=== PATIENT | female | born 1940 | race Caucasian/White ===

== ENCOUNTER 2022-12-19 11:36 | Emergency (ER) | payer MEDICARE ==
[2022-12-19 11:44] VITALS: RESP 20
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
--- NOTE | 2022-12-19 13:30 | CT ---
EXAMINATION TYPE: CT brain zully wo con DATE OF EXAM: 12/19/2022 COMPARISON: None HISTORY: 82-year-old female with pain after trauma, fall CT DLP: 1552.2 mGycm Automated exposure control for dose reduction was used. Technique: Examination of the head was done in axial plane without intravenous contrast. Coronal and sagittal reconstructions performed. CT of the cervical spine was obtained in axial plane without intravenous injection of contrast mater ial. Coronal and sagittal reformatted images were obtained from the axial views for evaluation of f ractures, spinal alignment and canal. FINDINGS: Head: There is no evidence of acute intracranial hemorrhage, acute ischemic changes, mass, mass-effect, or extra-axial fluid collection. There is no effacement of cerebral sulci or basal subarachnoid cister ns. Mild ventricular prominence likely secondary to central cerebral atrophy. Mild white matter hypod ensities. There is no midline shift. Eduardo-white matter distinction is preserved. Mild to moderate posterior superior scalp contusion. No underlying calvarial fracture. Rightward nasa l septal deviation. Trace mucosal thickening ethmoid air cells. Orbits and globes are intact. Mastoid air cells well pneumatized. Cervical spine: No craniocervical junction or necrotic, predental space widening, or prevertebral soft tissue swellin g. Degenerative changes at the C1 dens articulation. Degenerative bony ankylosis extending from C2 through C6 levels. Hypertrophic facet and uncovertebral joint arthropathy throughout. Some degenerative bony ankylosis i s present along the posterior elements as well. Verbal mild neuroforaminal narrowing throughout. Reversal of the normal cervical lordosis but with pr eserved alignment. No acute fracture seen of the cervical spine. Retropharyngeal course left ICA. Sagittal and coronal reformatted images confirm above findings. COMBINED IMPRESSION: 1. Right posterior scalp contusion. Mild central cerebral atrophy. Mild burden of chronic small vesse l ischemic disease. No acute intracranial abnormality seen. 2. 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 Reversal of the normal cervical lordosis. No acute fracture or malalignment seen.
[2022-12-19 14:07] VITALS: BP 129/83; PULSE 64; TEMP 98.6
== END 2022-12-19 14:04 | disposition home or self-care (01) ==
LOC: EC 11:36
DX: S00.03XA Contusion of scalp, initial encounter (principal); S06.0XAA Concussion with loss of consciousness status unknown, initial encounter; I10 Essential (primary) hypertension; E07.9 Disorder of thyroid, unspecified; F41.9 Anxiety disorder, unspecified; Z79.890 Hormone replacement therapy; Z79.899 Other long term (current) drug therapy; W18.30XA Fall on same level, unspecified, initial encounter
CPT/HCPCS: 70450; 72125; 93005; 99284

== ENCOUNTER → 2022-12-31 | Day surgery (SDC) | payer MEDICARE, OTHER ==
--- NOTE | 2023-01-09 08:47 | MM ---
Reason for Exam: Post Procedure Mammogram. Last mammogram was performed 16 year(s) and 11 month(s) ago. Patient History: Menarche at age 17. First Full-Term at age 25. Postmenopausal. Excisional Biopsy on the Right side. 03/13/2006, Cancelled Right Mammotome on the right side. Sister had breast cancer, age 40. Sister had breast cancer, age 50. Sister had breast cancer, age 50. Risk Values: Dorina 5 year model risk: 7.1%. NCI Lifetime model risk: 10.8%. Prior Study Comparison: 02/13/2006 Bilateral Screening Mammogram, [facility]. 02/26/2006 Right Diagnostic Mammogram, [facility]. 10/10/2006 Right Diagnostic Mammogram, [facility]. Tissue Density: Left: The breast tissue is heterogeneously dense. This may lower the sensitivity of mammography. Pathology Description: Location: 4 o'clock. Marker Left Behind. Needle Type: Mammotome Cores: 6 Skin Nicks: 1 Gauge: 13 Pathology Description: Location: 1 o'clock. Marker Left Behind. Needle Type: Mammotome Cores: 7 Skin Nicks: 1 Gauge: 13 The procedure of ultrasound guided core biopsy was explained to the patient. Benefits, alternatives, and risks were discussed. An informed consent was then obtained. A timeout was performed. The patient was placed in supine positioning for imaging and for the procedure. The overlying skin was prepped and draped in usual sterile fashion. Lidocaine was used as anesthetic into the skin and subcutaneous tissue up to area of concern in the left breast. A small skin marylou was made with surgical scalpel. There are 2 adjacent lesions. These were very dense and agree with entering with the needle for lidocaine. Under ultrasound guidance, a 12-gauge vacuum assisted biopsy device was used to obtain 7 core samples at the 1:00 position. 4 were taken at the larger site with 3 additional with the same device at the same time slightly more medial. A biopsy clip was left in between these 2 lesions. T3 coil marker was placed. A separate set up was performed. The area was anesthetized lidocaine. Under ultrasound guidance, a 12-gauge vacuum assisted biopsy device was used to obtain 6 core samples at the 4:00 position. Both far and near wall edges were sampled. A biopsy clip was left in lesion. Top core marker was placed. The patient tolerated the procedure well without any immediate complication. The patient was kept in the radiology department for short stay after the procedure and then discharged home in stable condition. Postprocedure mammogram: The patient was transferred to mammography for physician ordered post procedure mammogram for clip placement verification. The core markers are in expected regions mammogram. Impression: Successful ultrasound guided core biopsy of 2 areas of concern by ultrasound in the left breast breast, full pathology results to follow. Recommendations: 1. Recommendations are pending pathology results. Pathology Results: Result: Malignant, Invasive lobular carcinoma. A. LEFT BREAST, ONE O'CLOCK POSITION, ULTRASOUND GUIDED CORE BIOPSY: Invasive lobular carcinoma, Grade 2, with lobular carcinoma in situ (LCIS). See Surgical Pathology Cancer Case Summary and comment. B. 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 See Surgical Pathology Cancer Case Summary and comment. Overall Assessment: Malignant Assessment: MG diagnostic mammo LT wo CAD. - Left: Known biopsy proven malignancy, BI-RAD 6. Management: Surgical Consultation of the left breast. Electronically signed and approved by: Fernandez Khan D.O. Radiologis
== END ==
LOC: RADUSWWP 12:37
PROVIDERS: ATTEND Surgery
DX: C50.212 Malignant neoplasm of upper-inner quadrant of left female breast (principal); C50.412 Malignant neoplasm of upper-outer quadrant of left female breast; Z17.0 Estrogen receptor positive status [ER+]; Z78.0 Asymptomatic menopausal state; Z80.3 Family history of malignant neoplasm of breast
CPT/HCPCS: 88305; 88342; 88341; 77065; 19083; 19084; A4648

== ENCOUNTER → 2023-01-11 | Outpatient (CLI) | payer MEDICARE, OTHER ==
--- NOTE | 2023-01-11 10:22 | P.GSHP ---
History of Present Illness H&P Date: 01/11/23 Chief Complaint: Invasive carcinoma left breast 2 sites Maureen is an 82 -year-old white female seen in consultation with her daughter for Laureen Galan regarding biopsy-proven carcinoma of the left breast at 2 sites. The patient underwent on 12-04-22 and bilateral mammogram. This revealed a 2 cm irregular high-density mass in the left breast and a 1 cm irregular adjacent or contiguous mass in the inferior posterior breast. There was a poorly defined 1.5 cm mass in the middle third of the outer left breast in the 2 to 3:00 axis. No lesions of concern were recorded in the right breast. She then underwent bilateral breast ultrasounds. In the right breast there was a questionable mass at the 9:00 region on ultrasound which was indeterminant and in the left breast a 2.4 cm irregular solid mass at 4:00 was identified and a 1.2 cm irregular mass at 1:00 was identified. At least 2 suspicious lymph nodes in the left axilla were identified. She subsequently underwent ultrasound-guided core biopsy of the 1:00 to 4:00 site in the left breast. The 1:00 site revealed invasive lobular grade 2 carcinoma. The 4:00 site revealed invasive low-grade ductal carcinoma grade 1 with DCIS. Recommendation was for a ultrasound-guided right breast biopsy of the 9:00 lesi on versus a MRI. These were reviewed in detail with Dr. Peña. The patient can feel a lump in her left breast for about three weeks. She is not complaining of any pain in her breast. She did have a right breast lump removed in the remote past which was benign. She is not complaining of any trauma or infection in the breast. She had not had any mammograms prior to this evaluation for alise lopez 9 years. Caffeine: occasional nicotine: none chocolate: weekly BCP: none hormones: none Family History: 3 sisters: breast cancer; youngest in her 40's; (she had 7 sisters and 5 brothers) Hormonal History: menarche: 17 breast fed: yes, age at first : 25 menopause: 47 hormones: none Surgical History: polio 8 on her legs neck surgery right elbow ear extra toe cut off Medical History: hypothyroid gout HTN Social History: nicotine: none Call: Negative Drugs: Negative - Constitutional Constitutional: Denies chills, Denies fever - EENT Eyes: bilateral blurred vision Ears: bilateral: decreased hearing Ears, nose, mouth and throat: Denies headache, Denies sore throat - Breasts Breasts: bilateral: as per HPI - Cardiovascular Cardiovascular: Denies chest pain, Denies shortness of breath - Respiratory Respiratory: Denies cough, Denies 7 - Gastrointestinal Gastrointestinal: Denies abdominal pain, Denies diarrhea, Denies nausea, Denies vomiting - Genitourinary (Female) Genitourinary: Denies dysuria, Denies hematuria - Menstruation Menstruation: Reports postmenopausal - Musculoskeletal Musculoskeletal: Reports as per HPI - Integumentary Integumentary: Denies pruritus, Denies rash - Neurological Comment: uses a walker left leg fracture Neurological: Reports numbness - Psychiatric Psychiatric: Reports anxiety, Denies depression - Endocrine Endocrine: Reports as per HPI - Hematologic/Lymphatic Comment: none - Allergic/Immunologic Allergic/Immunologic: Reports seasonal allergies Past Medical History Past Medical History: Hypertension, Thyroid Disorder Additional Past Medical History / Comment(s): polio gout History of Any Multi-Drug Resistant Organisms: None Reported Past Surgical History: Back Surgery, Joint Replacement, Orthopedic Surgery Additional Past Surgical History / Comment(s): r arm neck surg Past Anesthesia/Blood Transfusion Reactions: No Reported Reaction Past Psychological History: Anxiety Past Alcohol Use History: None Reported Past Drug Use History: None Reported - Past Family History Father Family Medical History: No Reported History Medications and Allergies Home Medications Medication Instructions Recorded Confirmed Type Levothyroxine Sodium [Synthroid] 175 mcg PO DAILY 06/09/17 12/19/22 History Lisinopril-Hctz 20-25 mg 1 tab PO DAILY 06/09/17 12/19/22 History [Zestoretic 20-25] allopurinoL [Zyloprim] 100 mg PO DAILY 06/09/17 12/19/22 History atenoloL [Tenormin] 50 mg PO DAILY 06/09/17 12/19/22 History Allergies Allergy/AdvReac Type Severity Reaction Status Date / Time No Known Allergies Allergy Verified 12/19/22 13:57 Surgical - Exam - General no distress - Eyes normal ocular movement - Neck trachea midline - Respiratory normal respiratory effort, clear to auscultation - Cardiovascular Heart Sounds: normal: S1, S2 - Abdomen Abdomen: soft, non tender, no guarding, no rigid, no rebound - Integumentary normal turgor - Neurologic no disoriented, no combative - Musculoskeletal in a wheel chair - Psychiatric oriented to time, oriented to person, oriented to place, speech is normal, memory intact Breast Exam: BRA: 42DD Inspection: Bilateral grade 3 ptosis Palpation: Patient examined in the wheelchair Right breast: Examination reveals no dominant masses or nodules of concern, fibrocystic changes Right axilla: No adenopathy of concern Left breast: Examined in wheelchair, approximately 4-5 cm mass at the 4 o'clock position of the breast which extends superiorly it is not fixed, there does not appear to be skin involvement, no other dominant masses or nodules of concern Left axilla: No adenopathy of concern Results Mammogram and ultrasound reviewed in detail with Dr. Khan Pathology revealed Left breast 1:00: Grade 2 lobular invasive carcinoma, with LCIS Left breast 4:00: Grade 1 invasive ductal carcinoma Both of these are ER/AL positive, the 1:00 lesion is HER-2 negative, the 4:00 lesion HER-2 status is pending Assessment and Plan Assessment: Impression: Left breast biopsy proven invasive lobular carcinoma at 1 o'clock position; T1N?M0ER+Pr+Her2-G2; Lesion at 4:00 T2N?M0 ER+Pr+HER-2? G1 Status post polio resulting in difficulty with ambulation/status post fracture of right lower extremity Hypertension Hypothyroid Decreased hearing Plan: Presentation of case at tumor board Breast MRI Ultrasound-guided core biopsy left axillary node Patient and daughter will follow up after the above is done CC: Laureen Galan
[2023-01-11 10:54] VITALS: BP 135/80; PULSE 70; RESP 18; TEMP 98.9
== END ==
LOC: WWCWWP 09:40
PROVIDERS: ATTEND Surgery
DX: D05.02 Lobular carcinoma in situ of left breast (principal); Z17.0 Estrogen receptor positive status [ER+]; E03.9 Hypothyroidism, unspecified; I10 Essential (primary) hypertension; M10.9 Gout, unspecified; N63.25 Unspecified lump in the left breast, overlapping quadrants; Z79.890 Hormone replacement therapy; Z80.3 Family history of malignant neoplasm of breast; Z85.3 Personal history of malignant neoplasm of breast; Z79.899 Other long term (current) drug therapy; Z87.891 Personal history of nicotine dependence

== ENCOUNTER → 2023-01-30 | Day surgery (SDC) | payer MEDICARE, OTHER ==
--- NOTE | 2023-02-06 12:54 | MM ---
Reason for Exam: Post Procedure Mammogram. Last screening mammogram was performed 2 month(s) ago. Patient History: Menarche at age 17. First Full-Term at age 25. Postmenopausal. Breast cancer, left, age 82. 12/31/2022, US biopsy breast add'l VAD LT on the Left side. 12/31/2022, Malignant US biopsy breast VAD LT on the left side. Excisional Biopsy on the Right side. 03/13/2006, Cancelled Right Mammotome on the right side. Sister had breast cancer, age 40. Sister had breast cancer, age 50. Sister had breast cancer, age 50. Prior Study Comparison: 02/26/2006 Right Diagnostic Mammogram, [facility]. 10/10/2006 Right Diagnostic Mammogram, [facility]. 12/31/2022 Left MG diagnostic mammo LT wo CAD., [facility]. Tissue Density: The breast tissue is heterogeneously dense. This may lower the sensitivity of mammography. Pathology Description: Location: axilla. Marker Left Behind. Needle Type: Mammotome Cores: 3 Gauge: 13 Pathology Description: Location: 10 o'clock. Marker Left Behind. Needle Type: Mammotome Cores: 4 Gauge: 13 The procedure of ultrasound guided core biopsy was explained to the patient. Benefits, alternatives, and risks were discussed. An informed consent was then obtained. The patient was placed in the right lateral decubitus positioning for imaging and during the procedure. The overlying skin was prepped and draped in usual sterile fashion. Lidocaine buffered with epinephrine was used as anesthetic into the skin and subcutaneous tissues up to the area of concern in the left axilla. Under ultrasound guidance, a 12-gauge vacuum-assisted biopsy gun device was used to obtain 3 core samples. Following this, a ribbon biopsy clip was left in the lesion. Small hematoma identified in this region. The patient tolerated the procedure well. Attention was turned to the right breast. The distinct regions identified in the right breast on prior ultrasound at 9 and 11:00 were not definitively apparent on today's examination. Irregular hypoechoic lobulated region at 10:00 4 cm from the nipple was identified again. It was determined to biopsy this region. The patient was placed in the left lateral decubitus position for imaging and during the procedure. The overlying skin was prepped and draped in usual sterile fashion. Lidocaine buffered with epinephrine was used as anesthetic into the skin and subcutaneous tissues up to the area of concern in the right breast at 10:00 4 cm of the nipple. Under ultrasound guidance, a 12-gauge vacuum-assisted biopsy gun device was used to obtain 4 core samples. Following this, a coil biopsy clip was left in the lesion. The patient tolerated the procedure well without any immediate complication. The patient was kept in the radiology department for short stay after the procedure and then discharged home in stable condition. Postprocedure mammogram: The patient was transferred to mammography for physician ordered post procedure mammogram for clip placement verification. The mammograms demonstrate appropriate position of both clips. Impression: Successful, uncomplicated ultrasound guided core biopsy of area of concern in the left axilla with additional biopsy within the right breast at 10:00. The right breast lesions at 9 and 11:00 were not well apparent on ultrasound. Full pathology results to follow. Depending on results, consider follow-up short-term ultrasound for reassessment of the right breast lesions at 9:00 and 11:00. Pathology Results: Result: Malignant, Invasive ductal carcinoma. A. RIGHT BREAST, DESIGNATED TEN O'CLOCK POSITION, ULTRASOUND GUIDED CORE BIOPSY: Focal sclerotic fibrosis and mild periductal chronic inflammation with fibrocystic change, columnar cell change and usual ductal hyperplasia. Current specimen negative for definitive features of in situ or invasive carcinoma (see note). B. LEFT BREAST AXILLA, ULTRASOUND GUIDED CORE BIOPSY: Fibrous tissue involved by invasive ductal carcinoma with scant lymphoid tissue present (see note). 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 Examination of the right breast biopsy in specimen A reveals fibrocystic change with columnar cell change and usual ductal hyperplasia along with focal areas of sclerotic fibrosis with associated minute calcification. It is also noted there was a questionable and indeterminate right breast area identified on ultrasound clinically. The differential diagnosis considerations for the focal fibrosis seen within the right breast biopsy favors a fibrous scar, but a partially sampled and sclerotic stromal component of a possible fibroadenoma is a consideration. Clinical correlation with recent imaging studies is suggested regarding this questionable right breast area. Examination of the left breast axillary biopsy in specimen B reveals focal nodular areas of sclerotic fibrotic tissue which is involved by carcinoma having low grade nuclear atypia and focal duct/tubule formation. Very scant lymphocytes forming a lymphoid aggregate area is seen. Considerations for specimen B include a lymph node nearly entirely replaced by metastatic carcinoma versus an additional primary site of carcinoma within left breast axillary tissue. Given the E-cadherin staining is performed with appropriate controls on the tissue block with specimen B and is positive within tumor cells. This finding supports ductal nature regarding the tumor within specimen B. Intradepartmental consultation with Dr. Isael Sommer is in agreement with the assessments for both specimens. Overall Assessment: Malignant Assessment: MG diagnostic mammo BI wo CAD - Bilateral: Known biopsy proven malignancy, BI-RAD 6 - Left. Management: Surgical Consultation of the left breast. 10 o'clock site on the right is negative. Left axilla is positive. Electronically signed and approved by: Fitz Baires D.O.
== END ==
LOC: RADUSWWP 11:41
PROVIDERS: ATTEND Surgery
DX: R92.8 Other abnormal and inconclusive findings on diagnostic imaging of breast (principal); C50.912 Malignant neoplasm of unspecified site of left female breast; C50.911 Malignant neoplasm of unspecified site of right female breast
CPT/HCPCS: 88305; 88342; 77066; 19083 ×2; A4648

== ENCOUNTER → 2023-01-30 | Outpatient (CLI) | payer MEDICARE, OTHER ==
--- NOTE | 2023-01-30 15:44 | US ---
EXAMINATION TYPE: US thyroid st tissue head/neck DATE OF EXAM: 01/30/2023 COMPARISON: CT brain C-spine 12/19/2022 CLINICAL INDICATION: Female, 82 years old with history of R22.1, Localized swelling/mass neck; Left s upraclavicular swelling TECHNIQUE: Multiple grayscale and color ultrasound images of the left supraclavicular region were obtained. FINDINGS/IMPRESSION: No solid or cystic lesion. No lymphadenopathy identified in the left supraclavicular region.
== END | disposition home or self-care (01) ==
LOC: RADUSMAIN 11:39
PROVIDERS: ATTEND Surgery
DX: R22.1 Localized swelling, mass and lump, neck (principal)
CPT/HCPCS: 76536

== ENCOUNTER → 2023-02-07 | Outpatient (CLI) | payer MEDICARE, OTHER ==
[2023-02-07 15:40] VITALS: BP 107/60; PULSE 80; RESP 16; TEMP 97.7
--- NOTE | 2023-02-07 16:02 | P.PN ---
Progress Note - Text Progress Note Date: 02/07/23 History of Present Illness H&P Date: 02-07-23 Chief Complaint: Invasive carcinoma left breast 2 sites Maureen is an 82 -year-old white female seen in consultation with her daughter for Laureen Galan regarding biopsy-proven carcinoma of the left breast at 2 sites. The patient underwent on 12-04-22 and bilateral mammogram. This revealed a 2 cm irregular high-density mass in the left breast and a 1 cm irregular adjacent or contiguous mass in the inferior posterior breast. There was a poorly defined 1.5 cm mass in the middle third of the outer left breast in the 2 to 3:00 axis. No lesions of concern were recorded in the right breast. She then underwent bilateral breast ultrasounds. In the right breast there was a questionable mass at the 9:00 region on ultrasound which was indeterminant and in the left breast a 2.4 cm irregular solid mass at 4:00 was identified and a 1.2 cm irregular mass at 1:00 was identified. At least 2 suspicious lymph nodes in the left axilla were identified. She subsequently underwent ultrasound-guided core biopsy of the 1:00 to 4:00 site in the left breast. The 1:00 site revealed invasive lobular grade 2 carcinoma. The 4:00 site revealed invasive low-grade ductal carcinoma grade 1 with DCIS. The patient refused MRI issue said that she had metal in her ear. A right breast ultrasound core biopsy of the area of concern was performed and this was benign. A PET scan was performed on at [facility], this revealed 1. FDG avid left breast mass and axillary lymph node suspicious for metastases 1.5 cm right breast nodule without significant metabolism Minimally enlarged uterus without significant metabolism Recommend pelvic ultrasound scan No additional significant findings The patient was seen by radiation oncology on 8222 this note was reviewed the patient is considering neoadjuvant endocrine therapy she was not felt to be a good candidate for chemotherapy which seemed to be reasonable given her performance status and medical history Radiation oncologist discussed the role for adjuvant radiotherapy depending on her final pathology She underwent a left axillary biopsy and right breast biopsy on 8222: Right breast was benign Left breast axilla this fibrous tissue involved by invasive ductal carcinoma with scant lymphoid tissue present The patient can feel a lump in her left breast for about three weeks. She is not complaining of any pain in her breast. She did have a right breast lump removed in the remote past which was benign. She is not complaining of any trauma or infection in the breast. She had not had any mammograms prior to this evaluation for approximately 9 years. Her case was presented at tumor board and 8123 Recommendation was for PET scan: This was done did not show evidence of metastatic disease Ultrasound of left supraclavicular area no lesions of concern identified Breast MRI declined by patient Left axillary biopsy positive for involved node Right breast biopsy by ultrasound negative Genetic testing is sent She was seen today by [facility] was recommended she undergo neoadjuvant hormone therapy. The patient and her daughter understand this and are in agreement with this. Caffeine: occasional nicotine: none chocolate: weekly BCP: none hormones: none Family History: 3 sisters: breast cancer; youngest in her 40's; (she had 7 sisters and 5 brothers) Hormonal History: menarche: 17 breast fed: yes, age at first : 25 menopause: 47 hormones: none Surgical History: polio 8 on her legs neck surgery right elbow ear extra toe cut off Medical History: hypothyroid gout HTN Social History: nicotine: none Call: Negative Drugs: Negative - Constitutional Constitutional: Denies chills, Denies fever - EENT Eyes: bilateral blurred vision Ears: bilateral: decreased hearing Ears, nose, mouth and throat: Denies headache, Denies sore throat - Breasts Breasts: bilateral: as per HPI - Cardiovascular Cardiovascular: Denies chest pain, Denies shortness of breath - Respiratory Respiratory: Denies cough - Gastrointestinal Gastrointestinal: Denies abdominal pain, Denies diarrhea, Denies nausea, Denies vomiting - Genitourinary (Female) Genitourinary: Denies dysuria, Denies hematuria - Menstruation Menstruation: Reports postmenopausal - Musculoskeletal Musculoskeletal: Reports as per HPI - Integumentary Integumentary: Denies pruritus, Denies rash - Neurological Comment: uses a walker left leg fracture Neurological: Reports numbness - Psychiatric Psychiatric: Reports anxiety, Denies depression - Endocrine Endocrine: Reports as per HPI - Hematologic/Lymphatic Comment: none - Allergic/Immunologic Allergic/Immunologic: Reports seasonal allergies Past Medical History Past Medical History: Hypertension, Thyroid Disorder Additional Past Medical History / Comment(s): polio gout History of Any Multi-Drug Resistant Organisms: None Reported Past Surgical History: Back Surgery, Joint Replacement, Orthopedic Surgery Additional Past Surgical History / Comment(s): r arm neck surg Past Anesthesia/Blood Transfusion Reactions: No Reported Reaction Past Psychological History: Anxiety Past Alcohol Use History: None Reported Past Drug Use History: None Reported - Past Family History Father Family Medical History: No Reported History Medications and Allergies Home Medications Medication Instructions Recorded Confirmed Type Levothyroxine Sodium [Synthroid] 175 mcg PO DAILY 06/09/17 12/19/22 History Lisinopril-Hctz 20-25 mg 1 tab PO DAILY 06/09/17 12/19/22 History [Zestoretic 20-25] allopurinoL [Zyloprim] 100 mg PO DAILY 06/09/17 12/19/22 History atenoloL [Tenormin] 50 mg PO DAILY 06/09/17 12/19/22 History Allergies Allergy/AdvReac Type Severity Reaction Status Date / Time No Known Allergies Allergy Verified 12/19/22 13:57 Impression: Patient with 2 sites of malignancy in the left breast 1:00 site 1.2 cm irregular mass; biopsy grade 2 invasive lobular carcinoma with LCIS ER/[place] positive HER-2/jasson negative 4:00 site 2.4 cm irregular mass low-grade invasive ductal carcinoma with focal DCIS ER/[place] positive HER-2/jasson negative Ultrasound revealed a 9 o'clock position lesion positive lymph node with invasive ductal carcinoma. Right breast core biopsy benign Plan: Neoadjuvant hormone therapy Patient has seen by medical and radiation oncology Patient will follow up here in 6 weeks CC: Laureen Galan
== END ==
LOC: WWCWWP 15:27
PROVIDERS: ATTEND Surgery
DX: Z85.3 Personal history of malignant neoplasm of breast (principal); C50.412 Malignant neoplasm of upper-outer quadrant of left female breast; C50.811 Malignant neoplasm of overlapping sites of right female breast; C50.812 Malignant neoplasm of overlapping sites of left female breast; E03.9 Hypothyroidism, unspecified; I10 Essential (primary) hypertension; M10.9 Gout, unspecified; Z17.0 Estrogen receptor positive status [ER+]; Z79.890 Hormone replacement therapy; Z80.3 Family history of malignant neoplasm of breast; Z79.899 Other long term (current) drug therapy; Z87.891 Personal history of nicotine dependence

== ENCOUNTER → 2023-02-18 | Outpatient (CLI) | payer MEDICARE, OTHER ==
[2023-02-18 16:45] LABS: Basophils % (A) 0 %; Eosinophils # (A) 0.3 k/uL (0-0.7); Eosinophils % (A) 3 %; HCT 37.4 % (34.0-46.0); HGB 12.5 gm/dL (11.4-16.0); Lymphocytes # (A) 2.1 k/uL (1.0-4.8); Lymphocytes % (A) 21 %; MCH 30.7 pg (25.0-35.0); MCHC 33.4 g/dL (31.0-37.0); MCV 91.6 fL (80.0-100.0); Mean Platelet Volume 9.1; Monocytes # (A) 0.6 k/uL (0-1.0); Monocytes % (A) 7 %; Neutrophils # (A) 6.5 k/uL (1.3-7.7); Neutrophils % (A) 67 %; Platelet Count 207 k/uL (150-450); RBC 4.08 m/uL (3.80-5.40); RDW 13.1 % (11.5-15.5); WBC 9.6 k/uL (3.8-10.6)
[2023-02-18 17:00] LABS: ALT 22 U/L (4-34); AST 27 U/L (14-36); African American GFR (CKD) >90 (>60 ml/min/1.73 sqM); Albumin 3.8 g/dL (3.5-5.0); Alkaline Phosphatase 99 U/L (38-126); Anion Gap 9 mmol/L; Blood Urea Nitrogen 18 mg/dL (7-17); Calcium 9.5 mg/dL (8.4-10.2); Carbon Dioxide 30 mmol/L (22-30); Chloride 101 mmol/L (98-107); Glucose 117 mg/dL (74-99); Non-African American GFR(CKD) 86 (>60 ml/min/1.73 sqM); Potassium 4.1 mmol/L (3.5-5.1); Sodium 140 mmol/L (137-145); Total Bilirubin 0.3 mg/dL (0.2-1.3); Total Protein 6.9 g/dL (6.3-8.2)
--- NOTE | 2023-02-19 15:34 | BD ---
EXAMINATION TYPE: Axial Bone Density DATE OF EXAM: 02/18/2023 CLINICAL HISTORY: 82 years old Female. ICD-10 CODE: C50.812 breast ca Height: 61.5 Weight: 220 FRAX RISK QUESTIONS: Family History (Parent hip fracture): yes , father History of Fracture in Adulthood: yes, RT hip femur 2016, rt wrist to elbow 1988 Secondary Osteoporosis: no RISK FACTORS HISTORY OF: Hip Fracture (Right): yes When: 2016 History of Wrist Fracture: yes rt When: 1988 Surgery to Hip(right): yes When: 2016 Family History of Osteoporosis: no Active: yes Diet low in dairy products/other sources of calcium: no Postmenopausal woman: yes Lost more than 2 inches in height since high school: no Frequent falls: no Poor Health: no MEDICATIONS: Thyroid Medications: yes Which medication: Synthroid How Lon+ years Additional Medications: yes gout, hbp meds, antineoplastic, Additional History: yes breast cancer 2022 EXAM MEASUREMENTS: Bone mineral densitometry was performed using the [employer] System. Bone mineral density as measured about the Lumbar spine is: ----- L1-L4(G/cm2): 1.213 T Score Values are as follows: ----- L1: 0.5 ----- L2: 0.5 ----- L3: 0.4 ----- L4: -0.5 ----- L1-L4: 0.3 Z Score Values are as follows: ----- L1: 1.2 ----- L2: 1.2 ----- L3: 1.1 ----- L4: 0.2 ----- L1-L4: 1.0 Bone mineral density baseline Bone mineral density about the L hip (g/cm2): 0.864 T Score values are as follows: -----L Neck: -1.6 -----L Total: -1.1 Z Score values are as follows: -----L Neck: -0.2 -----L Total: 0.0 Bone mineral density baseline FRAX%s: The graph provided illustrates a 18.0% chance for a major osteoporotic fx and a 3.9% chance f or the hips probability for fx in 10 years time. IMPRESSION: Osteopenia (T Score between -2.5 and -1). There is slightly increased risk of fracture and the patient may be considered for treatment. Re-Screen 2-5 years. NOTE: T-SCORE=SD OF THE YOUNG ADULT MEAN.
== END | disposition home or self-care (01) ==
LOC: RADBDWWP 14:52
PROVIDERS: ATTEND Internal Medicine
DX: C50.812 Malignant neoplasm of overlapping sites of left female breast (principal); C50.412 Malignant neoplasm of upper-outer quadrant of left female breast; M85.89 Other specified disorders of bone density and structure, multiple sites; E03.9 Hypothyroidism, unspecified; Z71.3 Dietary counseling and surveillance; Z78.0 Asymptomatic menopausal state
CPT/HCPCS: 77080; 80053; 85025

== ENCOUNTER → 2023-06-20 | Outpatient (CLI) | payer MEDICARE, OTHER ==
--- NOTE | 2023-06-20 11:35 | USB ---
Reason for Exam: Follow-up at short interval from prior study. Patient History: Menarche at age 17. First Full-Term at age 25. Postmenopausal. Breast cancer, left, age 82. Breast cancer, right, age 82. 01/30/2023, US biopsy breast VAD LT on the Left side. 01/30/2023, Malignant US biopsy breast VAD RT on the right side. 12/31/2022, US biopsy breast add'l VAD LT on the Left side. 12/31/2022, Malignant US biopsy breast VAD LT on the left side. Excisional Biopsy on the Right side. 03/13/2006, Cancelled Right Mammotome on the right side. Sister had breast cancer, age 40. Sister had breast cancer, age 50. Sister had breast cancer, age 50. Technique: Method: Targeted. Prior Study Comparison: 12/04/2022 Bilateral MG diagnostic mammo w CAD [facility] - 2, Unknown. 12/31/2022 Left MG diagnostic mammo LT wo CAD., [facility]. 01/30/2023 Bilateral MG diagnostic mammo BI wo CAD, [facility]. Findings: The lateral section of the breast of the left breast, the axilla of the left breast and the retroareolar of the left breast were scanned. Targeted ultrasound left breast 12:00 to 4:00 position including the subareolar region and axilla. At the 1:00 position, 5 cm from the nipple, there is an irregular, poorly defined hypoechoic area estimated to measure smaller with decreased bulk compared to 12/31/2022 measuring 2.1 x 0.9 x 0.8 cm. This is in comparison to 2.3 x 1.2 x 0.8 cm, previously. An adjacent microclip from prior biopsy. At the 3:00 position, 5 cm from the nipple, couple benign cysts are present measuring up to 6 mm. At the 4:00 position, 10 cm from the nipple, there is a solid bilobed mass containing a microclip. This measures 2.5 x 1.3 x 1.6 cm. Previously measured 2.8 x 2.5 x 2.0 cm. Within the axilla, there is a 1.2 x 1.1 x 0.7 cm uniformly thickened lymph node containing a microclip from prior biopsy. Previously measured 1.4 x 1.4 x 0.7 cm and had a greater degree of cortical thickening. Overall Assessment: Known biopsy proven malignancy, BI-RAD 6 Management: Diagnostic Mammogram of the left breast in 2 months. Surgical Consultation of the left breast. There has been slight interval treatment response but with disease remaining. Follow-up diagnostic mammogram in 2 months which will be 6 months from the patient's prior 01/30/2023 exam. Appropriate oncologic and surgical management advised. A clinical breast exam by your physician is recommended on an annual basis and results should be correlated with mammographic findings. This exam should not preclude additional follow-up of suspicious palpable abnormalities. Results were given to the patient verbally at the time of exam. Electronically signed and approved by: Kun Gonzalez M.D. Radiologist
== END | disposition home or self-care (01) ==
LOC: RADUSWWP 10:23
PROVIDERS: ATTEND Internal Medicine
DX: C50.812 Malignant neoplasm of overlapping sites of left female breast (principal); E03.9 Hypothyroidism, unspecified; Z71.3 Dietary counseling and surveillance; Z78.0 Asymptomatic menopausal state; Z80.3 Family history of malignant neoplasm of breast

== ENCOUNTER → 2023-07-25 | Outpatient (CLI) | payer MEDICARE, OTHER ==
--- NOTE | 2023-07-25 11:05 | P.PN ---
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 The patient underwent on 12-04-22 a bilateral mammogram. This revealed a 2 cm irregular high-density mass in the left breast and a 1 cm irregular adjacent or contiguous mass in the inferior posterior breast. There was a poorly defined 1.5 cm mass in the middle third of the outer left breast in the 2 to 3:00 axis. No lesions of concern were recorded in the right breast. She then underwent bilateral breast ultrasounds. In the right breast there was a questionable mass at the 9:00 region on ultrasound which was indeterminant and in the left breast a 2.4 cm irregular solid mass at 4:00 was identified and a 1.2 cm irregular mass at 1:00 was identified. At least 2 suspicious lymph nodes in the left axilla were identified. She subsequently underwent ultrasound-guided core biopsy of the 1:00 to 4:00 site in the left breast. The 1:00 site revealed invasive lobular grade 2 carcinoma. The 4:00 site revealed invasive low-grade ductal carcinoma grade 1 with DCIS. The patient refused MRI issue said that she had metal in her ear. A right breast ultrasound core biopsy of the area of concern was performed and this was benign. A PET scan was performed on at [facility], this revealed 1. FDG avid left breast mass and axillary lymph node suspicious for metastases 1.5 cm right breast nodule without significant metabolism Minimally enlarged uterus without significant metabolism Recommend pelvic ultrasound scan No additional significant findings The patient was seen by radiation oncology on 8222 this note was reviewed the patient is considering neoadjuvant endocrine therapy she was not felt to be a good candidate for chemotherapy which seemed to be reasonable given her performance status and medical history Radiation oncologist discussed the role for adjuvant radiotherapy depending on her final pathology She underwent a left axillary biopsy and right breast biopsy on 8222: Right breast was benign Left breast axilla this fibrous tissue involved by invasive ductal carcinoma with scant lymphoid tissue present The patient can feel a lump in her left breast for about three weeks. She is not complaining of any pain in her breast. She did have a right breast lump removed in the remote past which was benign. She is not complaining of any trauma or infection in the breast. She had not had any mammograms prior to this evaluation for approximately 9 years. Her case was presented at tumor board and 8123 Recommendation was for PET scan: This was done did not show evidence of metastatic disease Ultrasound of left supraclavicular area no lesions of concern identified Breast MRI declined by patient Left axillary biopsy positive for involved node Right breast biopsy by ultrasound negative Genetic testing is sent She was seen today by Dat Morgan was recommended she undergo neoadjuvant hormone therapy. The patient and her daughter understand this and are in agreement with this. 03-22-23 note medical oncology 02-07-23 reviewed She is at the present time taking hormone therapy via Dr. Morgan. She is tolerating this without difficulty. The tumors have decreased in size on the therapy. The plan is for her to be on this for approximately 4-5 months. 07-15-23 note medical oncology 06-28-23 reviewed Left breast was performed on 06-20-2023 1 ;00 Position: Poorly defined hypoechoic area estimated to measure smaller compared to prior ultrasound now measures 2.1 x 0.9 x 0.8 was 2.3 x 1.2 x 0.8; prior biopsy invasive lobular cancer 4 o'clock position solid bilobed mass containing a microclip previously 2.8 x 2.5 x 2 now measures 2.5 x 1.3 x 1.6; prior biopsy invasive ductal cancer Within the axilla there is a 1.2 x 1.1 x 0.7 thickened lymph node previously measured 1.4 x 1.4 x 0.7 Testing: Result variant of uncertain significance The patient is having a stress test performed tomorrow. Caffeine: occasional nicotine: none chocolate: weekly BCP: none hormones: none Family History: 3 sisters: breast cancer; youngest in her 40's; (she had 7 sisters and 5 brothers) Hormonal History: menarche: 17 breast fed: yes, age at first : 25 menopause: 47 hormones: none Surgical History: polio 8 on her legs neck surgery right elbow ear extra toe cut off Medical History: hypothyroid gout HTN Social History: nicotine: none Call: Negative Drugs: Negative - Constitutional Constitutional: Denies chills, Denies fever - EENT Eyes: bilateral blurred vision Ears: bilateral: decreased hearing Ears, nose, mouth and throat: Denies headache, Denies sore throat - Breasts Breasts: bilateral: as per HPI - Cardiovascular Cardiovascular: Denies chest pain, Denies shortness of breath - Respiratory Respiratory: Denies cough - Gastrointestinal Gastrointestinal: Denies abdominal pain, Denies diarrhea, Denies nausea, Denies vomiting - Genitourinary (Female) Genitourinary: Denies dysuria, Denies hematuria - Menstruation Menstruation: Reports postmenopausal - Musculoskeletal Musculoskeletal: Reports as per HPI - Integumentary Integumentary: Denies pruritus, Denies rash - Neurological Comment: uses a walker left leg fracture Neurological: Reports numbness - Psychiatric Psychiatric: Reports anxiety, Denies depression - Endocrine Endocrine: Reports as per HPI - Hematologic/Lymphatic Comment: none - Allergic/Immunologic Allergic/Immunologic: Reports seasonal allergies Past Medical History Past Medical History: Hypertension, Thyroid Disorder Additional Past Medical History / Comment(s): polio gout History of Any Multi-Drug Resistant Organisms: None Reported Past Surgical History: Back Surgery, Joint Replacement, Orthopedic Surgery Additional Past Surgical History / Comment(s): r arm neck surg Past Anesthesia/Blood Transfusion Reactions: No Reported Reaction Past Psychological History: Anxiety Past Alcohol Use History: None Reported Past Drug Use History: None Reported - Past Family History Father Family Medical History: No Reported History Medications and Allergies Home Medications Medication Instructions Recorded Confirmed Type Levothyroxine Sodium [Synthroid] 175 mcg PO DAILY 06/09/17 12/19/22 History Lisinopril-Hctz 20-25 mg 1 tab PO DAILY 06/09/17 12/19/22 History [Zestoretic 20-25] allopurinoL [Zyloprim] 100 mg PO DAILY 06/09/17 12/19/22 History atenoloL [Tenormin] 50 mg PO DAILY 06/09/17 12/19/22 History Allergies Allergy/AdvReac Type Severity Reaction Status Date / Time No Known Allergies Allergy Verified 12/19/22 13:57 Objective - Constitutional General appearance: Present: cooperative - EENT Eyes: Present: EOMI - Neck Neck: Present: normal ROM - Respiratory Respiratory: bilateral: CTA - Cardiovascular Heart sounds: normal: S1, S2 - Gastrointestinal General gastrointestinal: Present: soft - Integumentary Integumentary: Present: normal turgor - Musculoskeletal Musculoskeletal Comment(s): uses a wheel kelly - Psychiatric Psychiatric: Present: A&O x's 3, appropriate affect, intact judgment & insight - Additional findings Additional findings: Breast Exam: BRA: 40D Inspection: Bilateral grade 3 ptosis Palpation: Right breast: Examination sitting up fibrocystic changes no discrete dominant masses or nodules of concern Right axilla: No adenopathy of concern Left breast: Examination sitting up fibrocystic changes no discrete mass at 1:00 or 4:00 is appreciated on today's exam no other masses of concern are noted Left axilla: Fullness without any discrete fixed adenopathy Assessment and Plan Assessment: Impression: Patient with 2 sites of malignancy in the left breast 1:00 site 1.2 cm irregular mass; biopsy grade 2 invasive lobular carcinoma with LCIS ER/TN positive HER-2/jasson negative 4:00 site 2.4 cm irregular mass low-grade invasive ductal carcinoma with focal DCIS ER/TN positive HER-2/jasson negative Ultrasound revealed a 9 o'clock position lesion positive lymph node with invasive ductal carcinoma. Right breast core biopsy benign Patient has completed neoadjuvant hormone therapy with disease increase in size of the lesion Plan: Neoadjuvant hormone therapy Patient has seen by medical and radiation oncology [facility] cardiology CC: Laureen Galan
[2023-07-25 11:19] VITALS: BP 142/70; PULSE 69; RESP 18; TEMP 98.3
== END ==
LOC: WWCWWP 10:43
PROVIDERS: ATTEND Surgery
DX: C50.911 Malignant neoplasm of unspecified site of right female breast (principal); C50.912 Malignant neoplasm of unspecified site of left female breast; E03.9 Hypothyroidism, unspecified; F41.9 Anxiety disorder, unspecified; I10 Essential (primary) hypertension; Z17.0 Estrogen receptor positive status [ER+]; Z87.39 Personal history of other diseases of the musculoskeletal system and connective tissue; Z79.890 Hormone replacement therapy; Z80.3 Family history of malignant neoplasm of breast; Z79.899 Other long term (current) drug therapy; Z87.891 Personal history of nicotine dependence

== ENCOUNTER 2023-08-13 08:41 | Day surgery (SDC) | payer MEDICARE, OTHER ==
[~2023-08-13 08:41] MED LIST: DEXAMETHASONE SOD PHOSPHATE 4 MG/ML 1 ML VIAL IV ONE; HYDROmorphone 0.5 MG/0.5 ML SYRINGE IVP PRN; LACTATED RINGERS 1,000 ML IV SCH; LIDOCAINE 1% (10MG/ML) FOR IV START INTRADERMA PRN; METOCLOPRAMIDE 5 MG/ML 2 ML VIAL IVP PRN; ONDANSETRON 4 MG/2 ML VIAL IVP ONE
[2023-08-13 09:37] LABS: HCT 37.2 % (34.0-46.0); MCH 31.5 pg (25.0-35.0); MCHC 34.9 g/dL (31.0-37.0); MCV 90.3 fL (80.0-100.0); Mean Platelet Volume 9.3; Platelet Count 233 k/uL (150-450); RBC 4.11 m/uL (3.80-5.40); RDW 13.8 % (11.5-15.5); WBC 8.5 k/uL (3.8-10.6)
[2023-08-13] MEDS: LACTATED RINGERS 1,000 ML IV ONE ×2 (09:37→14:48)
[2023-08-13 09:57] LABS: African American GFR (CKD) >90 (>60 ml/min/1.73 sqM); Anion Gap 8 mmol/L; Blood Urea Nitrogen 22 mg/dL (7-17); Calcium 10.1 mg/dL (8.4-10.2); Carbon Dioxide 24 mmol/L (22-30); Chloride 107 mmol/L (98-107); Glucose 111 mg/dL (74-99); Non-African American GFR(CKD) >90 (>60 ml/min/1.73 sqM); Sodium 139 mmol/L (137-145)
[2023-08-13 10:07] LABS: Potassium 4.9 mmol/L (3.5-5.1)
[2023-08-13] MEDS: LIDOCAINE 1% INJ 10MG/ML (20 ML MDV) SQ ONE (10:25)
--- NOTE | 2023-08-13 11:47 | P.NAPBC ---
NAPBC Queries - NAPBC Queries Was patient's case review presented at [facility] tumor board? If no, comment.: Yes Was patient's pathology reviewed at [facility]? If no, comment.: Yes Was breast conservation surgery offered? If no, comment.: Yes Was sentinel node biopsy offered? If no, comment.: Yes Was diagnosis confirmed by percutaneous core biopsy? If no, comment.: Yes Is patient mastectomy patient?: No Was a preop referral to reconstructive surgeon offered?: No Clinical Stage: 2 areas of malignancy, 4:00 3A invasive ductal carcinoma, T2 N2 M0, 1:00 invasive lobular carcinoma stage Ia T1 N0 M0 both left breast
[2023-08-13] MEDS: HEPARIN SODIUM,PORCINE 5,000 UNIT/ML 1 ML VIAL SQ PRN (12:00)
[2023-08-13] MEDS: ONDANSETRON 4 MG/2 ML VIAL IVP ONE (12:00)
[2023-08-13] MEDS: DEXAMETHASONE SOD PHOSPHATE 4 MG/ML 1 ML VIAL IVP ONE (12:00)
[2023-08-13] MEDS ORDERED: SUCCINYLCHOLINE CHLORIDE 200 MG/10 ML VIAL IV ONE (12:15)
[2023-08-13] MEDS ORDERED: WATER FOR INJECTION, STERILE 10 ML VIAL IV ONE (12:15)
[2023-08-13] MEDS ORDERED: PROPOFOL 10 MG/ML 20 ML VIAL IV ONE (12:15)
[2023-08-13] MEDS ORDERED: HYDROmorphone (PF) 1 MG/ML ONE (12:15)
[2023-08-13] MEDS ORDERED: LIDOCAINE 1% INJ 10MG/ML (20 ML MDV) ONE (12:15)
[2023-08-13] MEDS ORDERED: ePHEDrine 50 MG/ML 1 ML VIAL ONE (12:15)
[2023-08-13] MEDS ORDERED: fentaNYL (PF) 50 MCG/ML 2 ML AMP ONE (12:15)
[2023-08-13] MEDS: METHYLENE BLUE 50 MG/10 ML AMPUL MISCELLANE ONE (12:32)
--- NOTE | 2023-08-13 13:40 | NM ---
EXAMINATION TYPE: NM sentinel node injection DATE OF EXAM: 08/13/2023 COMPARISON: NONE CLINICAL INDICATION: Female, 82 years old with history of LEFT BREAST CA; TECHNIQUE AND FINDINGS: The procedure of sentinel lymph node injection was explained to the patient. The benefits, alternatives, and risks were discussed. An informed consent was then obtained. Overlying skin is cleaned with sterile alcohol. Following this, 475 uCi Tc99m Tilmanocept was inject ed in the upper outer aspect of the left nipple intradermally. The patient tolerated the procedure well without any immediate complication. The patient was kept in the radiology department for short stay after the procedure and then taken to surgery for surgical p rocedure what is presumed intraoperative gamma probe will be used for sentinel lymph node detection. IMPRESSION: Left breast radiotracer injection for sentinel node localization as above.
--- NOTE | 2023-08-13 15:03 | P.OP ---
Date of Procedure: 08/13/23 Preoperative Diagnosis: Left breast invasive ductal carcinoma stage III, left breast invasive lobular carcinoma stage I, positive left adenopathy Postoperative Diagnosis: Same Procedure(s) Performed: Left breast needle localization positive prior lymph node, resection left axillary lymph node, sentinel node mapping, resection axillary tissue, lumpectomy number 124 cm, oncoplastic tissue transfer 48 cm, lumpectomy number 215 cm, oncoplastic tissue transfer 43 cm, concentric mastopexy Anesthesia: YADIRA Surgeon: Sandra Rodriguez Estimated Blood Loss (ml): 20 IV fluids (ml): 700 Pathology: other (Axillary tissue, breast tissue, 2 sites of known cancer, at 5 o'clock position the palpable abnormality identified and sent) Condition: stable Disposition: same day Indications for Procedure: Biopsy-proven left breast invasive ductal carcinoma, biopsy-proven left breast invasive lobular carcinoma, left breast known axillary cancer Operative Findings: Dense breast tissue, palpable abnormality 5:00 left breast sent for specimen Description of Procedure: The patient was initially seen in the radiology department. Needle localization of the axillary lymph node which had previously been positive was performed, needle localization of 2 lesions in the left breast at o'clock and 4:00 were performed. Injection of radiotracer for sentinel node biopsy was performed. The patient was brought to the operative suite. Following induction of anesthesia the neoprobe was used to interrogate the axilla. Minimal radioactivity was identified in the axilla. 5 cc of half percent methylene blue was injected into the periareolar area and the breast was massaged. The left breast and axilla were then prepped and draped in a sterile fashion. An incision was made in the axilla and carried down to the hook of the wire. Surrounding tissue was excised. A palpable node was identified. No radioactivity was identified of concern. No blue lymph nodes were identified. The deep tissues were irrigated, we were sure that hemostasis was attained 3-0 Vicryl was placed in the deep tissues. The skin was closed using a 4-0 Monocryl. Area of the breast was approached. There were 2 lesions 1 at 1:00 and 1 at 4:00 in the breast. In order to facilitate removal of both of these lesions a concentric mastopexy incision was formed. Skin markings were placed for the concentric mastopexy. The skin was de-epithelialized. The first lumpectomy was approached through the mastopexy incision at approximately the 12:00 area. This was dissected down to the hook of the wire. The specimen was removed. The specimen was approximately 6 x 4 cm in size. It was painted for orientation. Radiograph revealed that the area of concern had been removed. A medial pillar 6 x 2 cm was formed, a lateral pillar 4 x 3 cm was formed. The wound was well- irrigated. Surgicel in powder form was placed after placement of titanium clips. Total oncoplastic tissue transfer for this lumpectomy was 48 cm. Second lumpectomy specimen was obtained. Using a concentric mastopexy incision the parenchyma was entered inferiorly at approximately 6:00. Dissection was performed down to the needle and a 5 x 3 cm specimen was obtained. Inferiorly this was directly onto the skin under the skin and posteriorly this was onto the chest wall. Anteriorly this was just under the skin. Radiograph of the specimen revealed the lesion of concern however the clip was not seen. It was assured that the lesion of concern had been removed. Lateral pillar was formed which was 4 x 4 cm, and medial pillar was formed which was 4 x 3 cm. Total oncoplastic tissue transfer was 4 three 3 cm. The wound was irrigated. After reassured that hemostasis was attained titanium clips were placed. Surgicel in powder form was placed. The concentric mastopexy outer [place] of the incision was closed using a 3-0 Prolene pursestring suture. The subcutaneous deep tissues were closed using 3-0 Vicryl suture. This was followed by running 4-0 Monocryl suture. All incisions were closed using surgical glue. During the dissection there was a palpable fullness at approximately the 5 o'clock position of the breast which was firm. This was suspicious, it had not been seen radiographically. This was sent for pathologic evaluation. The patient tolerated the procedure in stable condition. All instrument and sponge counts were correct at the end of the case.
--- NOTE | 2023-08-13 15:10 | MM ---
EXAM: MG pre op needle loc LT, US breast localization LT, US breast local each add LT, MG surgical specimen LT, MG surgical specimen LT, MG surgical specimen LT, DATE OF EXAM: 08/13/2023 COMPARISON: 12/04/2022 Bilateral MG diagnostic mammo w CAD KEESHA - 2, Unknown. 12/31/2022 Left MG diagnostic mammo LT wo CAD., [facility]. 01/30/2023 Bilateral MG diagnostic mammo BI wo CAD, [facility]. (accession [id number]), 12/04/2022 Bilateral MG diagnostic mammo w CAD KEESHA - 2, Unknown. 12/31/2022 Left MG diagnostic mammo LT wo CAD., [facility]. 01/30/2023 Bilateral MG diagnostic mammo BI wo CAD, [facility]. 06/20/2023 Left US breast limited LT, [facility]. (accession [id number]), 12/04/2022 Bilateral MG diagnostic mammo w CAD KEESHA - 2, Unknown. 12/31/2022 Left MG diagnostic mammo LT wo CAD., [facility]. 01/30/2023 Bilateral MG diagnostic mammo BI wo CAD, [facility]. 06/20/2023 Left US breast limited LT, [facility]. (accession [id number]) DESCRIPTION: The procedure of needle localization with wire placement and than surgical excision was explained to the patient. Benefits, alternatives, and risks were discussed. An informed consent was then obtained. Patient was referred for a total of 3 separate excision. 1:00 superior lesion coil clip. 4:00 inferior lesion dumbbell clip. Axillary lymph node remain clear. These are all targeted in turn. 1.) 1:00 superior lesion, coil clip: The shortest pathway for procedure was chosen. Shortest pathway was a superior approach. The overlying skin was prepped and draped in usual sterile fashion. Lidocaine was used as anesthetic into the skin and subcutaneous tissue up to the level of area of concern. A 5 cm Kopan's needle was used. It was placed via a superior approach under mammographic guidance. Subsequent 90 degrees mammogram show the needle to be in satisfactory position relative to the targeted area. At this point, wire was placed and the needle was withdrawn. The wire was fixed to patient's skin. Images were marked for surgeon. 2.) 4:00 inferior lesion, dumbbell clip: The shortest pathway for procedure was chosen. Shortest pathway was an inferior approach. The overlying skin was prepped and draped in usual sterile fashion. Lidocaine was used as anesthetic into the skin and subcutaneous tissue up to the level of area of concern. A 5 cm Kopan's needle was used. It was placed via direct ultrasound guidance and an inferior approach. At this point, wire was placed and the needle was withdrawn. The wire was fixed to patient's skin. Images were marked for surgeon. 3.) Axilla lymph node, ribbon clip: The shortest pathway for procedure was chosen. Shortest pathway was an inferolateral approach. The overlying skin was prepped and draped in usual sterile fashion. Lidocaine was used as anesthetic into the skin and subcutaneous tissue up to the level of area of concern. A 5 cm Kopan's needle was used. It was placed via direct ultrasound guidance. At this point, wire was placed and the needle was withdrawn. The wire was fixed to patient's skin. Images were marked for surgeon. Subsequent post localization mammogram shows wires to be an satisfactory position relative to the targeted areas. The patient tolerated the procedure well without any immediate complication. The patient was kept in the radiology department for short stay after the procedure and then taken to surgery for surgical excision. All of specimen mammograms appears satisfactory. Only in the 4:00 inferior lesion specimen, we are unable to identify the microclip. It may have fallen out as the landmark calcifications and densities are present in the specimen suggesting satisfactory excision. The patient was kept in hospital for short stay after the procedure and then discharged home in stable condition. IMPRESSION: Successful, uncomplicated needle localization with 3 site wire placement and surgical excision multicentric left breast cancer and metastatic left axillary adenopathy. Patient status post neoadjuvant chemotherapy. Full pathology results to follow. Pathology Results: Malignant A. LEFT BREAST LUMPECTOMY #1: Invasive lobular carcinoma, margins negative for invasive malignancy. Tumor focally measures less than 1 mm from the superior and superior/posterior margins. Extensive background lobular neoplasia (ALH/LCIS), proliferative fibrocystic changes including focal radial scar/complex sclerosing lesion, previous biopsy site and small intraductal papilloma not involving the margins. See Surgical Pathology Cancer Case Summary. B. AXILLARY LYMPH NODE: One of four lymph nodes positive for metastasis consistent with ductal mammary carcinoma, with focal limited extranodal extension. Greatest dimension of metastatic deposit measures 10 mm. Background hyalinizing fibrosis/scar and calcifications consistent with neoadjuvant chemotherapy related changes. C. LEFT BREAST LUMPECTOMY #2: Invasive moderately differentiated ductal carcinoma (Grade 2), extensively involving the inferior margin and the cauterized uninked margin adjacent to the inferior and posterior margins. Background proliferative fibrocystic changes, fibrosis/scar consistent with neoadjuvant chemotherapy related changes, multiple intraductal papillomas not involving the margins, focal ADH not involving the margins, and previous biopsy site. See Surgical Pathology Cancer Case Summary. D. ADDITIONAL AXILLARY TISSUE, LEFT BREAST: Lymph node positive for metastatic carcinoma consistent with ductal mammary carcinoma, with focal extranodal extension. Greatest dimension of metastatic deposit measures 7 mm. Background hyalinizing fibrosis/scar and calcifications consistent with neoadjuvant treatment related changes. E. DE-EPITHELIALIZED LEFT BREAST TISSUE: Benign skin with focal seborrheic keratosis. F. ADDITIONAL TISSUE, LEFT BREAST FIVE O'CLOCK: Invasive lobular carcinoma involving the inked margin. Background lobular neoplasia (ALH/LCIS), proliferative fibrocystic changes and previous biopsy/procedure site changes. See Surgical Pathology Cancer Case Summary. Recommendation Surgical consult of the left breast. MTDD
[2023-08-13 16:14] VITALS: TEMP 98.1
[2023-08-13 17:40] VITALS: BP 120/65; PULSE 79; RESP 15
== END 2023-08-13 17:38 | disposition home or self-care (01) ==
LOC: OR 08:41
PROVIDERS: ATTEND Surgery
DX: C50.412 Malignant neoplasm of upper-outer quadrant of left female breast (principal); N64.89 Other specified disorders of breast; L82.1 Other seborrheic keratosis; Z92.21 Personal history of antineoplastic chemotherapy; E03.9 Hypothyroidism, unspecified; F41.9 Anxiety disorder, unspecified; M10.9 Gout, unspecified; I10 Essential (primary) hypertension; E66.01 Morbid (severe) obesity due to excess calories; Z79.890 Hormone replacement therapy; Z79.899 Other long term (current) drug therapy; Z98.890 Other specified postprocedural states; Z68.41 Body mass index [BMI] 40.0-44.9, adult
CPT/HCPCS: 19301; 19316; 38792; 38525; 88305; 80048; 85027; 88307; 76098; 19281; 19285; 19286; C1819; A9520; J0330; J1644; J1100; J0690; J2405; J2001; J3010; J1170; J2704; Q9968

== ENCOUNTER → 2023-08-22 | Outpatient (CLI) | payer MEDICARE ==
--- NOTE | 2023-08-22 11:44 | P.PN ---
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 The patient underwent on 12-04-22 a bilateral mammogram. This revealed a 2 cm irregular high-density mass in the left breast and a 1 cm irregular adjacent or contiguous mass in the inferior posterior breast. There was a poorly defined 1.5 cm mass in the middle third of the outer left breast in the 2 to 3:00 axis. No lesions of concern were recorded in the right breast. She then underwent bilateral breast ultrasounds. In the right breast there was a questionable mass at the 9:00 region on ultrasound which was indeterminant and in the left breast a 2.4 cm irregular solid mass at 4:00 was identified and a 1.2 cm irregular mass at 1:00 was identified. At least 2 suspicious lymph nodes in the left axilla were identified. She subsequently underwent ultrasound-guided core biopsy of the 1:00 to 4:00 site in the left breast. The 1:00 site revealed invasive lobular grade 2 carcinoma. The 4:00 site revealed invasive low-grade ductal carcinoma grade 1 with DCIS. The patient refused MRI issue said that she had metal in her ear. A right breast ultrasound core biopsy of the area of concern was performed and this was benign. A PET scan was performed on at [facility], this revealed 1. FDG avid left breast mass and axillary lymph node suspicious for metastases 1.5 cm right breast nodule without significant metabolism Minimally enlarged uterus without significant metabolism Recommend pelvic ultrasound scan No additional significant findings The patient was seen by radiation oncology on 8222 this note was reviewed the patient is considering neoadjuvant endocrine therapy she was not felt to be a good candidate for chemotherapy which seemed to be reasonable given her performance status and medical history Radiation oncologist discussed the role for adjuvant radiotherapy depending on her final pathology She underwent a left axillary biopsy and right breast biopsy on 8222: Right breast was benign Left breast axilla this fibrous tissue involved by invasive ductal carcinoma with scant lymphoid tissue present The patient can feel a lump in her left breast for about three weeks. She is not complaining of any pain in her breast. She did have a right breast lump removed in the remote past which was benign. She is not complaining of any trauma or infection in the breast. She had not had any mammograms prior to this evaluation for approximately 9 years. Her case was presented at tumor board and 8123 Recommendation was for PET scan: This was done did not show evidence of metastatic disease Ultrasound of left supraclavicular area no lesions of concern identified Breast MRI declined by patient Left axillary biopsy positive for involved node Right breast biopsy by ultrasound negative Genetic testing is sent She was seen today by Dat Morgan was recommended she undergo neoadjuvant hormone therapy. The patient and her daughter understand this and are in agreement with this. 03-22-23 note medical oncology 02-07-23 reviewed She is at the present time taking hormone therapy via Dr. Morgan. She is tolerating this without difficulty. The tumors have decreased in size on the therapy. The plan is for her to be on this for approximately 4-5 months. 07-15-23 note medical oncology 06-28-23 reviewed Left breast was performed on 06-20-2023 1 ;00 Position: Poorly defined hypoechoic area estimated to measure smaller compared to prior ultrasound now measures 2.1 x 0.9 x 0.8 was 2.3 x 1.2 x 0.8; prior biopsy invasive lobular cancer 4 o'clock position solid bilobed mass containing a microclip previously 2.8 x 2.5 x 2 now measures 2.5 x 1.3 x 1.6; prior biopsy invasive ductal cancer Within the axilla there is a 1.2 x 1.1 x 0.7 thickened lymph node previously measured 1.4 x 1.4 x 0.7 Testing: Result variant of uncertain significance The patient is having a stress test performed tomorrow. 08-22-23 Post op patient noted to have (+) margins and three sites of cancer, 2 of 5 nodes (+) for tumor She has done very well. However secondary to the 3 sites of invasive malignancy and tumor with positive margins she would like to have, and secondary to her concerns about asymmetry and surveillance in the right breast she would prefer to have bilateral mastectomies. Case was initially presented at tumor board on 08-06-2023. The question of continued neoadjuvant hormone therapy was discussed. The consensus was that the patient could decide to continue neoadjuvant therapy for several more months or proceed with surgery week. I have called the patient and discussed this with the patient and her daughter. The patient would like to have the surgery performed. Her daughter understand the risk and benefits of the surgery. Risk include but are not limited to bleeding, infection, reaction to the aesthetic. They understand that she will have drains in both sides. We will get home health care to help with her postoperative care. Discussed reconstruction and at this time the patient has declined. She would like to go flat. Caffeine: occasional nicotine: none chocolate: weekly BCP: none hormones: none Family History: 3 sisters: breast cancer; youngest in her 40's; (she had 7 sisters and 5 brothers) Hormonal History: menarche: 17 breast fed: yes, age at first : 25 menopause: 47 hormones: none Surgical History: polio 8 on her legs neck surgery right elbow ear extra toe cut off Medical History: hypothyroid gout HTN Social History: nicotine: none Call: Negative Drugs: Negative - Constitutional Constitutional: Denies chills, Denies fever - EENT Eyes: bilateral blurred vision Ears: bilateral: decreased hearing Ears, nose, mouth and throat: Denies headache, Denies sore throat - Breasts Breasts: bilateral: as per HPI - Cardiovascular Cardiovascular: Denies chest pain, Denies shortness of breath - Respiratory Respiratory: Denies cough - Gastrointestinal Gastrointestinal: Denies abdominal pain, Denies diarrhea, Denies nausea, Denies vomiting - Genitourinary (Female) Genitourinary: Denies dysuria, Denies hematuria - Menstruation Menstruation: Reports postmenopausal - Musculoskeletal Musculoskeletal: Reports as per HPI - Integumentary Integumentary: Denies pruritus, Denies rash - Neurological Comment: uses a walker left leg fracture Neurological: Reports numbness - Psychiatric Psychiatric: Reports anxiety, Denies depression - Endocrine Endocrine: Reports as per HPI - Hematologic/Lymphatic Comment: none - Allergic/Immunologic Allergic/Immunologic: Reports seasonal allergies Past Medical History Past Medical History: Hypertension, Thyroid Disorder Additional Past Medical History / Comment(s): polio gout History of Any Multi-Drug Resistant Organisms: None Reported Past Surgical History: Back Surgery, Joint Replacement, Orthopedic Surgery Additional Past Surgical History / Comment(s): r arm neck surg Past Anesthesia/Blood Transfusion Reactions: No Reported Reaction Past Psychological History: Anxiety Past Alcohol Use History: None Reported Past Drug Use History: None Reported - Past Family History Father Family Medical History: No Reported History Medications and Allergies Home Medications Medication Instructions Recorded Confirmed Type Levothyroxine Sodium [Synthroid] 175 mcg PO DAILY 06/09/17 12/19/22 History Lisinopril-Hctz 20-25 mg 1 tab PO DAILY 06/09/17 12/19/22 History [Zestoretic 20-25] allopurinoL [Zyloprim] 100 mg PO DAILY 06/09/17 12/19/22 History atenoloL [Tenormin] 50 mg PO DAILY 06/09/17 12/19/22 History Allergies Allergy/AdvReac Type Severity Reaction Status Date / Time No Known Allergies Allergy Verified 12/19/22 13:57 Objective - Constitutional General appearance: Present: cooperative - EENT Eyes: Present: EOMI ENT: Present: hearing grossly normal - Neck Neck: Present: normal ROM - Respiratory Respiratory: bilateral: CTA - Cardiovascular Heart sounds: normal: S1, S2 - Gastrointestinal General gastrointestinal: Present: soft - Integumentary Integumentary Comment(s): Incision left breast clean and dry, no evidence of infection or hematoma - Musculoskeletal Musculoskeletal: Present: gait normal - Psychiatric Psychiatric: Present: A&O x's 3, appropriate affect, intact judgment & insight Assessment and Plan Assessment: Impression: Multifocal malignant disease left breast/positive margins following lumpectomy hypothyroid gout HTN Plan: Dr. Pruitt Medical clearance cardiology Bilateral mastectomy
[2023-08-22 12:11] VITALS: BP 116/69; PULSE 58; RESP 17; TEMP 98.9
== END ==
LOC: WWCWWP 10:34
PROVIDERS: ATTEND Surgery
DX: C50.412 Malignant neoplasm of upper-outer quadrant of left female breast (principal); E03.9 Hypothyroidism, unspecified; I10 Essential (primary) hypertension; M10.9 Gout, unspecified; N63.25 Unspecified lump in the left breast, overlapping quadrants; F41.9 Anxiety disorder, unspecified; Z79.890 Hormone replacement therapy; Z80.3 Family history of malignant neoplasm of breast; Z98.890 Other specified postprocedural states; Z79.899 Other long term (current) drug therapy; Z17.0 Estrogen receptor positive status [ER+]; Z87.891 Personal history of nicotine dependence

== ENCOUNTER 2023-09-02 07:00 | Day surgery (SDC) | payer MEDICARE ==
[2023-08-29 09:28] VITALS: BMI 42.0
[2023-09-02] MEDS: LACTATED RINGERS 1,000 ML IV ONE ×2 (08:04→10:39)
[2023-09-02] MEDS: HEPARIN SODIUM,PORCINE 5,000 UNIT/ML 1 ML VIAL SQ PRN (08:07)
[2023-09-02] MEDS ORDERED: PROPOFOL 10 MG/ML 20 ML VIAL IV ONE (09:18)
[2023-09-02] MEDS ORDERED: ePHEDrine 50 MG/ML 1 ML VIAL ONE (09:18)
[2023-09-02] MEDS ORDERED: HYDROmorphone (PF) 1 MG/ML ONE (09:18)
[2023-09-02] MEDS ORDERED: SUCCINYLCHOLINE CHLORIDE 200 MG/10 ML VIAL IV ONE (09:18)
[2023-09-02] MEDS ORDERED: NEOSTIGMINE 1 MG/ML 10 ML VIAL ONE (09:18)
[2023-09-02] MEDS ORDERED: ROCURONIUM 10 MG/ML (5 ML VIAL) IV ONE (09:18)
[2023-09-02] MEDS ORDERED: GLYCOPYRROLATE 0.2 MG/ML 2 ML VIAL ONE (09:18)
[2023-09-02] MEDS ORDERED: MIDAZOLAM 2 MG/2 ML VIAL ONE (09:18)
[2023-09-02] MEDS ORDERED: fentaNYL (PF) 50 MCG/ML 2 ML AMP ONE (09:18)
[2023-09-02] MEDS ORDERED: LIDOCAINE 1% INJ 10MG/ML (20 ML MDV) ONE (09:18)
--- NOTE | 2023-09-02 09:38 | P.NAPBC ---
NAPBC Queries - NAPBC Queries Was patient's case review presented at [facility] tumor board? If no, comment.: Yes (prior to initial surgery called medical oncology after path) Was patient's pathology reviewed at [facility]? If no, comment.: Yes Was breast conservation surgery offered? If no, comment.: No (multifocal disease) Was sentinel node biopsy offered? If no, comment.: No (node biopsy already done) Was diagnosis confirmed by percutaneous core biopsy? If no, comment.: Yes Is patient mastectomy patient?: Yes Was a preop referral to reconstructive surgeon offered?: Yes Clinical Stage: stage IIIA left breast invasive ductal (+) magins stage IA invassive lobular (-) margin additional tissue 5 OClock (+) margin invasive lobular
[2023-09-02] MEDS ORDERED: HYDROmorphone 1 MG/ML 1 ML SYRINGE IVP PRN (13:25)
[2023-09-02] MEDS ORDERED: ONDANSETRON 4 MG/2 ML VIAL IVP PRN (13:25)
[2023-09-02] MEDS ORDERED: NALOXONE 0.4 MG/ML 1 ML VIAL IV PRN (13:25)
--- NOTE | 2023-09-02 13:25 | P.OP ---
Date of Procedure: 09/02/23 Preoperative Diagnosis: Multifocal left breast invasive ductal and invasive lobular carcinoma Postoperative Diagnosis: Same Procedure(s) Performed: Bilateral mastectomy Anesthesia: YADIRA Surgeon: Sandra Rodriguez Estimated Blood Loss (ml): 150 IV fluids (ml): 1,300 Pathology: other (Bilateral breast) Condition: stable Disposition: same day Indications for Procedure: Multifocal left breast cancer prior lumpectomy positive margins Operative Findings: Fibrofatty bilateral breast tissue Description of Procedure: Patient was taken to the operating room and following induction of anesthesia both breast and axillas were prepped and draped in a sterile fashion. The right breast was approached initially. A superior incision was made and carried through the skin and subcutaneous tissue to the breast area of the breast parenchyma. The plane between the breast parenchyma in the subcutaneous tissue was identified. A superior flap was developed. An inferior flap was developed in the same fashion. The breast was dissected down to the chest wall. The breast was taken from medial to lateral off the pectoralis muscle using the electrocautery device as well as the harmonic scalpel. Dissection was performed laterally to the area of the axilla. The breast was removed. A superior suture was placed which was short and a long lateral suture was placed. The wound was well-irrigated. After assuring that hemostasis was attained Surgicel in powder form was placed. #10 NEELAM drain was placed. The subcutaneous tissue was closed in an interrupted fashion using 3-0 Vicryl suture. This was followed by a 3-0 Vicryl running subcutaneous suture. A 4-0 Monocryl suture was then placed. The left side was then approached. The left breast was approached. A superior incision was made and carried through the skin and subcutaneous tissue to the plane between the breast parenchyma and the subcutaneous tissue. A superior flap was developed. An inferior flap was developed in the same fashion. And the inferior area near 4 30-5 o'clock the cavity from the prior lumpectomy was identified and the skin was removed at that site as well. The breast was dissected down to the chest wall. The breast was taken from medial to lateral off the pectoralis muscle using the electrocautery device as well as the harmonic scalpel. Dissection was performed laterally to the area of the axilla. The breast was removed. A superior suture was placed which was short and a long lateral suture was placed. The wound was well-irrigated. After we are sure that hemostasis was attained Surgicel in powder form was placed. #10 NEELAM drain was placed. The subcutaneous tissue was closed in an interrupted fashion using 3-0 Vicryl suture. This was followed by 3-0 Vicryl running subcutaneous suture. 4-0 Monocryl subcuticular suture was then placed. All instrument and sponge counts were correct at the end of the case. The patient tolerated the procedure in stable condition.
--- NOTE | 2023-09-02 18:55 | P.CONS ---
History of Present Illness - Reason for Consult Consult date: 09/02/23 Medical management Requesting physician: Sandra Rodriguez - Chief Complaint Breast surgery - History of Present Illness This is a pleasant 82-year-old patient, chronic stable medical conditions include hypertension, previous silent [place], hypothyroid, polio with shortening of the right leg, gout, deaf in the right ear. Daughter at the bedside. Patient being followed by Dr. Laurent Garcia was found to have multifocal left breast invasive ductal and invasive lobular carcinoma. Underwent bilateral mastectomy. Patient has NEELAM drains on both sides. Currently propped up in bed. Eating her supper. Pain is controlled. Review of systems: GEN.: None EYES: None HEENT: Deaf in the right ear NECK: None RESPIRATORY: None CARDIOVASCULAR: None GASTROINTESTINAL: None GENITOURINARY: Urine incontinence e MUSCULOSKELETAL: Arthritic pain in the joints e LYMPHATICS: None HEMATOLOGICAL: None PSYCHIATRY: None NEUROLOGICAL: Does use a walker e Social history: Lives alone. Uses a walker. No smoking no alcohol. Physical examination: VITAL SIGNS: 98.1, 58, 20, 136 x 72, 97% room air GENERAL: BMI 42.5, reclining bed awake eating his supper. EYES: Pupils equal. Conjunctiva marine l. HEENT: External appearance of nose and ears normal, oral cavity grossly normal. Deaf in the right ear CHEST wall: Dressing over the chest. Drain on each side NECK: JVD not raised; masses not palpable. HEART: First and second heart sounds are normal; no edema. LUNGS: Respiratory rate normal; clear to auscultation. ABDOMEN: Soft, nontender, liver spleen not palpable, no masses palpable. PSYCH: Alert and oriented x3; mood and affect marine l. MUSCULOSKELETAL:No Clubbing/cyanosis;muscles-grossly intact. OA NEUROLOGICAL: Cranial nerves grossly intact; no facial asymmetry, power and sensation grossly intact. LYMPHATICS: No lymph nodes palpable in the axilla and neck INVESTIGATIONS, reviewed in the clinical context: August 13, 2023: White count 8.5 hemoglobin 13 platelets 233 sodium 139 potassium 4.9 creatinine 0.47 Assessment plan: -Bilateral mastectomy for multifocal left breast invasive ductal and invasive lobular carcinoma. Pain controlled. Has bilateral drains -Chronic gout Allopurinol 100 mg a day -Essential hypertension Zestoretic 20/25, Tenormin 50 mg -Hypothyroid Synthroid 175 mcg a day -Primary osteoarthritis Tylenol as needed -Morbid obesity BMI 42.5 Outpatient weight loss measures -Deaf in the right ear -Chronic urinary stress incontinence -Right leg weakness from a prior polio Care was discussed with the patient. Questions answered. Thank you Dr. Laurent Garcia Past Medical History Past Medical History: Cancer, Hypertension, Myocardial Infarction ([place]), Thyroid Disorder Additional Past Medical History / Comment(s): polio, gout , breast cancer, abnormal ekg showed old mi, deaf right ear., hx fall with fx right leg, hypothyroid. Last Myocardial Infarction Date:: unk History of Any Multi-Drug Resistant Organisms: None Reported Past Surgical History: Back Surgery, Breast Surgery, Joint Replacement, Orthopedic Surgery Additional Past Surgical History / Comment(s): r arm orif , neck surg , rt ear surgery as child, rt femur fx with linden to repair, total knee replacement, left breast surgery /lumpectomy 08/13/23. Past Anesthesia/Blood Transfusion Reactions: No Reported Reaction Smoking Status: Never smoker - Past Family History Father Family Medical History: No Reported History Medications and Allergies Home Medications Medication Instructions Recorded Confirmed Type Levothyroxine Sodium [Synthroid] 175 mcg PO DAILY 06/09/17 09/02/23 History Lisinopril-Hctz 20-25 mg 1 tab PO DAILY 06/09/17 09/02/23 History [Zestoretic 20-25] allopurinoL [Zyloprim] 100 mg PO DAILY 06/09/17 09/02/23 History atenoloL [Tenormin] 50 mg PO DAILY 06/09/17 09/02/23 History Alendronate Sodium [Fosamax] 70 mg PO WEEKLY 07/25/23 09/02/23 History Calcium Carbonate [Calcium] 600 mg PO DAILY 08/29/23 09/02/23 History Allergies Allergy/AdvReac Type Severity Reaction Status Date / Time No Known Allergies Allergy Verified 09/02/23 07:41 Physical Exam Vitals: Vital Signs Temp Pulse Resp BP Pulse Ox 09/02/23 16:10 58 L 20 136/72 97 09/02/23 15:40 60 20 130/70 97 09/02/23 14:55 98.1 F 59 L 20 131/76 96 09/02/23 14:30 59 L 16 134/71 98 09/02/23 14:25 58 L 20 135/73 97 09/02/23 14:15 59 L 16 138/75 97 09/02/23 14:10 57 L 20 142/75 97 09/02/23 14:00 67 16 139/65 98 09/02/23 13:45 61 16 156/64 100 09/02/23 13:38 97.8 F 65 16 148/71 99 09/02/23 07:58 98.4 F 60 16 143/66 95 Intake and Output 09/02/23 09/02/23 09/02/23 06:59 14:59 22:59 Intake Total 1800 Output Total 450 Balance 1350 Intake: IV 1800 Output: Urine 300 Estimated Blood Loss 150 Other: Weight 105.5 kg 105.5 kg
[2023-09-02] MEDS: HEPARIN SODIUM,PORCINE 5,000 UNIT/ML 1 ML VIAL SQ SCH (20:30)
[2023-09-02] MEDS: HYDROcodone/APAP 5-325MG 1 EACH TAB PO PRN (20:30)
[2023-09-02] MEDS: DEXTROSE 5%-0.45% NACL 1,000 ML IV SCH (20:31)
[2023-09-03] MEDS: LEVOTHYROXINE 88 MCG TAB PO SCH (06:22)
[2023-09-03 08:17] LABS: Basophils % (A) 0 %; Eosinophils # (A) 0.3 k/uL (0-0.7); Eosinophils % (A) 3 %; HCT 35.8 % (34.0-46.0); HGB 11.8 gm/dL (11.4-16.0); Lymphocytes # (A) 1.3 k/uL (1.0-4.8); Lymphocytes % (A) 13 %; MCH 31.4 pg (25.0-35.0); MCHC 33.1 g/dL (31.0-37.0); MCV 94.9 fL (80.0-100.0); Mean Platelet Volume 10.1; Monocytes # (A) 0.8 k/uL (0-1.0); Monocytes % (A) 7 %; Neutrophils # (A) 7.8 k/uL (1.3-7.7); Neutrophils % (A) 75 %; Platelet Count 191 k/uL (150-450); RBC 3.77 m/uL (3.80-5.40); RDW 13.4 % (11.5-15.5); WBC 10.3 k/uL (3.8-10.6)
[2023-09-03] MEDS: atenoloL 50 MG TAB PO SCH (08:43)
[2023-09-03] MEDS: CALCIUM CARBONATE 500 MG CHEWABLE PO SCH (08:43)
[2023-09-03] MEDS: LISINOPRIL-HCTZ 20-25 MG 1 EACH TAB PO SCH (08:43)
[2023-09-03] MEDS: allopurinoL 100 MG TAB PO SCH (08:43)
--- NOTE | 2023-09-03 10:11 | P.PN ---
Subjective Progress Note Date: 09/03/23 Principal diagnosis: Postop day #1 bilateral mastectomy/multifocal left breast cancer Maureen is an 82-year-old white female who is status post bilateral mastectomy for multifocal left breast cancer postop day #1. She is doing well at this time. She is tolerating diet without difficulty. Her pain is under control. Objective - Vital Signs Vital signs: Vital Signs Temp 98.9 F 09/03/23 00:00 Pulse 65 09/03/23 00:00 Resp 16 09/03/23 00:00 BP 112/67 09/03/23 00:00 Pulse Ox 95 09/03/23 00:00 FiO2 Intake & Output 09/02/23 09/03/23 09/03/23 18:59 06:59 18:59 Intake Total 1800 Output Total 555 690 Balance 1245 -690 Weight 105.5 kg Intake: IV 1800 Output: Drainage 105 140 Left Chest 30 RIGHT CHEST 75 140 Urine 300 550 Estimated Blood Loss 150 Other: # Voids 1 - Constitutional General appearance: Present: cooperative - EENT Eyes: Present: EOMI ENT: Present: hearing grossly normal - Neck Neck: Present: normal ROM - Respiratory Respiratory: bilateral: CTA - Cardiovascular Heart sounds: normal: S1, S2 - Integumentary Integumentary Comment(s): Incision bilateral clean and dry Bilateral NEELMA drains with serous output Left NEELAM: 30 cc Right NEELAM 90 cc - Labs CBC & Chem 7: 09/03/23 07:48 Labs: Abnormal Lab Results - Last 24 Hours (Table) 09/03/23 Range/Units 07:48 RBC 3.77 L (3.80-5.40) m/uL Neutrophils # 7.8 H (1.3-7.7) k/uL Assessment and Plan Assessment: Impression: Patient doing well at this time Plan: Discharge home Follow-up Dr. Gale next week Home health care Teach drain care
[2023-09-03 11:34] VITALS: BP 142/69; PULSE 67; RESP 18; TEMP 98.7
--- NOTE | 2023-09-03 17:06 | P.PN ---
Progress Note - Text Progress Note Date: 09/03/23 - Chief Complaint Breast surgery - History of Present Illness This is a pleasant 82-year-old patient, chronic stable medical conditions include hypertension, previous silent [place], hypothyroid, polio with shortening of the right leg, gout, deaf in the right ear. Daughter at the bedside. Patient being followed by Dr. Laurent Garcia was found to have multifocal left breast invasive ductal and invasive lobular carcinoma. Underwent bilateral mastectomy. Patient has NEELAM drains on both sides. Currently propped up in bed. Eating her supper. Pain is controlled. September 02: Feeling well. Pain controlled. Sitting up in a chair. Did tolerate a diet. Has some slight dizziness this morning but better. Spoke to the daughter. Buy a blood pressure machine and check it daily. Hold blood pressure medication if systolic equal to less than 120. Discussed in detail. Current medications reviewed Social history: Lives alone. Uses a walker. No smoking no alcohol. Physical examination: VITAL SIGNS: 98.7, 67, 18, 142 x 69, 95% room air GENERAL: Up in a chair, comfortable EYES: Pupils equal. Conjunctiva marine l. HEENT: External appearance of nose and ears normal, oral cavity grossly normal. Deaf in the right ear CHEST wall: Dressing over the chest. Drain on each side NECK: JVD not raised; masses not palpable. HEART: First and second heart sounds are normal; no edema. LUNGS: Respiratory rate normal; clear to auscultation. ABDOMEN: Soft, nontender, liver spleen not palpable, no masses palpable. PSYCH: Alert and oriented x3; mood and affect marine l. MUSCULOSKELETAL:No Clubbing/cyanosis;muscles-grossly intact. OA INVESTIGATIONS, reviewed in the clinical context: September 02: White count 10.3 hemoglobin 11.8 platelets 191 August 13, 2023: White count 8.5 hemoglobin 13 platelets 233 sodium 139 potassium 4.9 creatinine 0.47 Assessment plan: -Bilateral mastectomy for multifocal left breast invasive ductal and invasive lobular carcinoma. Pain controlled. Has bilateral drains -Chronic gout Allopurinol 100 mg a day -Essential hypertension Zestoretic , Tenormin 50 mg -Hypothyroid Synthroid 175 mcg a day -Primary osteoarthritis Tylenol as needed -Morbid obesity BMI 42.5 Outpatient weight loss measures -Deaf in the right ear -Chronic urinary stress incontinence -Right leg weakness from a prior polio Discussed with patient daughter at bedside. Daily blood pressure recording. Keep log. Follow-up with PCP. Thank you Dr. Laurent Garcia Past Medical History Past Medical History: Cancer, Hypertension, Myocardial Infarction ([place]), Thyroid Disorder Additional Past Medical History / Comment(s): polio, gout , breast cancer, abnormal ekg showed old mi, deaf right ear., hx fall with fx right leg, hypothyroid. Last Myocardial Infarction Date:: unk History of Any Multi-Drug Resistant Organisms: None Reported Past Surgical History: Back Surgery, Breast Surgery, Joint Replacement, Orthopedic Surgery Additional Past Surgical History / Comment(s): r arm orif , neck surg , rt ear surgery as child, rt femur fx with linden to repair, total knee replacement, left breast surgery /lumpectomy 08/13/23. Past Anesthesia/Blood Transfusion Reactions: No Reported Reaction Smoking Status: Never smoker
== END 2023-09-03 13:30 | disposition home health service (06) ==
LOC: OR 07:00 → 4FBP 13:21 → OR 09-03 13:30
PROVIDERS: ATTEND Surgery
DX: N60.41 Mammary duct ectasia of right breast (principal); E03.9 Hypothyroidism, unspecified; E66.01 Morbid (severe) obesity due to excess calories; I10 Essential (primary) hypertension; I25.2 Old myocardial infarction; M1A.9XX0 Chronic gout, unspecified, without tophus (tophi); H91.91 Unspecified hearing loss, right ear; N39.3 Stress incontinence (female) (male); Z68.41 Body mass index [BMI] 40.0-44.9, adult; Z79.890 Hormone replacement therapy; Z85.3 Personal history of malignant neoplasm of breast; Z79.899 Other long term (current) drug therapy; Z85.828 Personal history of other malignant neoplasm of skin
CPT/HCPCS: 19303; 88305; 85025; 88307; J2250; J0330; J1644 ×2; J2710; J0690; J2001; J3010; J1170; J2704

== ENCOUNTER → 2023-09-12 | Outpatient (CLI) | payer MEDICARE ==
[2023-09-12 18:03] LABS: Basophils # (A) 0.06 X 10*3/uL (0.00-0.10); Basophils % (A) 0.6 %; Eosinophils # (A) 0.46 X 10*3/uL (0.04-0.35); Eosinophils % (A) 4.3 %; HCT 36.7 % (37.2-46.3); HGB 11.4 g/dL (12.0-15.0); Lymphocytes # (A) 1.61 X 10*3/uL (0.90-5.00); MCH 29.9 pg (27.0-32.0); MCHC 31.1 g/dL (32.0-37.0); MCV 96.3 FL (80.0-97.0); Monocytes # (A) 1.31 X 10*3/uL (0.20-1.00); Monocytes % (A) 12.2 %; NRBC Per 100 WBC 0 X 10*3/uL (0.00-0.01); Neutrophils # (A) 7.19 X 10*3/uL (1.80-7.70); Neutrophils % (A) 67.1 %; Platelet Count 291 X 10*3/uL (140-440); RBC 3.81 X 10*6/uL (4.10-5.20); RDW 13.4 % (11.5-14.5); WBC 10.72 X 10*3/uL (4.50-10.00)
[2023-09-12 21:06] LABS: Anion Gap 14.9 mmol/L (4.00-12.00); Carbon Dioxide 23.1 mmol/L (21.6-31.8)
== END | disposition home or self-care (01) ==
LOC: LABWHC1 14:01
PROVIDERS: ATTEND Surgery
DX: C50.912 Malignant neoplasm of unspecified site of left female breast (principal)
CPT/HCPCS: 36415; 80051; 85025

== ENCOUNTER → 2023-09-12 | Outpatient (CLI) | payer MEDICARE ==
[2023-09-12 13:29] VITALS: BP 108/56; PULSE 63; RESP 15; TEMP 98.2
--- NOTE | 2023-09-12 13:46 | P.PN ---
Progress Note - Text Progress Note Date: 09/12/23 Maureen is an 82-year-old white female status post bilateral mastectomy on 09-02-2023. Pathology revealed bilateral ALH/LCIS. No further invasive cancer was identified. Patient is doing well postoperatively. She does have greater than 40 cc per 24-hour. On each side from her NEELAM drains. The patient's daughter states the patient has been having increased fatigue and some cramping in her hands. Examination: Lungs: Clear Heart: Regular rate and rhythm Incision: Clean and dry bilateral no evidence of any infection or seroma Plan: Will leave drains until next week Patient has been seen by medical oncology plan is for radiation secondary to positive left axillary lymph node Patient is presently on letrozole Follow-up here in 1 week CBC/electrolytes will call for results tomorrow Patient to follow-up with primary care care doctor CC: Laureen Galan
== END ==
LOC: WWCWWP 12:25
PROVIDERS: ATTEND Surgery
DX: Z90.13 Acquired absence of bilateral breasts and nipples (principal); Z87.891 Personal history of nicotine dependence

== ENCOUNTER → 2023-09-19 | Outpatient (CLI) | payer MEDICARE ==
[2023-09-19 09:08] VITALS: BP 129/83; PULSE 60; RESP 17; TEMP 98.3
--- NOTE | 2023-09-19 09:16 | P.PN ---
Progress Note - Text Progress Note Date: 09/19/23 Maureen is an 82-year-old white female status post bilateral mastectomy on 09-02-2023. Pathology revealed bilateral ALH/LCIS. No further invasive cancer was identified. Patient is doing well postoperatively. On her last visit she did have greater than 40 cc per 24-hour on each side from her NEELAM drains. The patient's daughter states the patient has been having increased fatigue and some cramping in her hands, she has followed with her primary care doctor for this. She continues to have > 40 cc from the right drain, and marginal close to 40 cc from the left side. The patient was noted to have bilateral ankle swelling. She was started on Lasix with resolution of the swelling in the right ankle but not on the left side. Examination: Lungs: Clear Heart: Regular rate and rhythm Incision: Clean and dry bilateral no evidence of any infection or seroma Left ankle swelling Plan: Will leave drains until next week Patient has been seen by medical oncology plan is for radiation secondary to positive left axillary lymph node Patient is presently on letrozole Follow-up here in 1 week ultrasound of the left leg rule out DVT Patient to follow-up with primary care care doctor CC: Laureen Galan
--- NOTE | 2023-09-19 11:43 | US ---
EXAMINATION TYPE: US venous doppler duplex LE LT DATE OF EXAM: 09/19/2023 10:10 AM COMPARISON: NONE CLINICAL INDICATION: Female, 82 years old with history of M79.605, R22.42 SWELLING AND PAIN; Patient has swelling of left ankle. Patient had knee replacement in left leg. SIDE PERFORMED: Left TECHNIQUE: The lower extremity deep venous system is examined utilizing real time linear array sonog regina with graded compression, doppler sonography and color-flow sonography. VESSELS IMAGED: Common Femoral Vein Deep Femoral Vein Greater Saphenous Vein * Femoral Vein Popliteal Vein Small Saphenous Vein * Proximal Calf Veins (* superficial vessels) Left Leg: There is a potential clot in the left PTVs. There is a small amount of color flow seen, ho wever vessels are non compressible. Spoke with Dr. Nugent, preliminary given to Dr. Baljinder Garcia. IMPRESSION: Noncompressible posterior tibial veins suspicious suggesting deep vein thrombosis.
== END ==
LOC: WWCWWP 08:23
PROVIDERS: ATTEND Surgery
DX: M25.472 Effusion, left ankle (principal); I82.492 Acute embolism and thrombosis of other specified deep vein of left lower extremity; Z85.3 Personal history of malignant neoplasm of breast; Z90.13 Acquired absence of bilateral breasts and nipples; Z87.891 Personal history of nicotine dependence

== ENCOUNTER 2023-09-21 00:25 | Observation (INO) | payer MEDICARE, OTHER ==
[2023-09-21] MEDS ORDERED: VANCOMYCIN IV PER PHARMACY 1 EACH MISC MISCELLANE PRN (00:47)
--- NOTE | 2023-09-21 00:50 | ED ---
Skin/Abscess/FB HPI - General Chief complaint: Skin/Abscess/Foreign Body Stated complaint: post op complications Time Seen by Provider: 09/21/23 00:36 Source: patient, family, RN notes reviewed, old records reviewed, Caregiver Mode of arrival: wheelchair Limitations: no limitations - History of Present Illness Initial comments: This is an 10-year-old female to the ER for evaluation of left breast pain and drainage from left breast, patient recently had breast surgery for breast cancer and had NEELAM drain placed and now has purulent drainage from that left breast. Patient has significant pain and swelling to left breast with surrounding cellulitis MD complaint: rash, abscess/boil -: hour(s) Location: generalized Severity: mild Severity scale (1-10): 4 Quality: stabbing Consistency: constant Improves with: none Worsens with: none Context: none Associated symptoms: denies other symptoms Treatments Prior to Arrival: none - Related Data Home Medications Medication Instructions Recorded Confirmed Levothyroxine Sodium [Synthroid] 175 mcg PO DAILY 06/09/17 09/19/23 Lisinopril-Hctz 20-25 mg 1 tab PO DAILY 06/09/17 09/19/23 [Zestoretic 20-25] allopurinoL [Zyloprim] 100 mg PO DAILY 06/09/17 09/19/23 atenoloL [Tenormin] 50 mg PO DAILY 06/09/17 09/19/23 Alendronate Sodium [Fosamax] 70 mg PO WEEKLY 07/25/23 09/19/23 Calcium Carbonate [Calcium] 600 mg PO DAILY 08/29/23 09/19/23 Furosemide [Lasix] 20 mg PO DAILY 09/19/23 09/19/23 Previous Rx's Medication Instructions Recorded HYDROcodone/APAP 5-325MG [[place] 5] 1 - 2 each PO Q6HR PRN #20 tab 09/03/23 Allergies Allergy/AdvReac Type Severity Reaction Status Date / Time No Known Allergies Allergy Verified 09/19/23 08:55 Review of Systems ROS Statement: Those systems with pertinent positive or pertinent negative responses have been documented in the HPI. ROS Other: All systems not noted in ROS Statement are negative. Past Medical History Past Medical History: Cancer, Deep Vein Thrombosis (DVT), Hypertension, Myocardial Infarction ([place]), Thyroid Disorder Additional Past Medical History / Comment(s): polio, gout , breast cancer, abnormal ekg showed old mi, deaf right ear., hx fall with fx right leg, hypothyroid. Last Myocardial Infarction Date:: unk History of Any Multi-Drug Resistant Organisms: None Reported Past Surgical History: Back Surgery, Breast Surgery, Joint Replacement, Orthopedic Surgery Additional Past Surgical History / Comment(s): r arm orif , neck surg , rt ear surgery as child, rt femur fx with linden to repair, total knee replacement, left breast surgery /lumpectomy 08/13/23. Past Anesthesia/Blood Transfusion Reactions: No Reported Reaction Past Psychological History: Anxiety Smoking Status: Never smoker Past Alcohol Use History: None Reported Past Drug Use History: None Reported - Past Family History Father Family Medical History: No Reported History General Exam Limitations: no limitations General appearance: alert, in no apparent distress Head exam: Present: atraumatic, normocephalic, normal inspection Eye exam: Present: normal appearance, PERRL, EOMI. Absent: scleral icterus, conjunctival injection, periorbital swelling ENT exam: Present: normal exam, mucous membranes moist Neck exam: Present: normal inspection. Absent: tenderness, meningismus, lymp hadenopathy Respiratory exam: Present: normal lung sounds bilaterally. Absent: respiratory distress, wheezes, rales, rhonchi, stridor Cardiovascular Exam: Present: regular rate, normal rhythm, normal heart sounds. Absent: systolic murmur, diastolic murmur, rubs, gallop, clicks GI/Abdominal exam: Present: soft, normal bowel sounds. Absent: distended, tenderness, guarding, rebound, rigid Extremities exam: Present: normal inspection, full ROM, normal capillary refill. Absent: tenderness, pedal edema, joint swelling, calf tenderness Back exam: Present: normal inspection Neurological exam: Present: alert, oriented X3, CN II-XII intact Psychiatric exam: Present: normal affect, normal mood Skin exam: Present: warm, dry, intact, normal color. Absent: rash Course Vital Signs 09/21/23 09/21/23 00:26 01:54 Temperature 97.7 F Pulse Rate 65 68 Respiratory 18 18 Rate Blood Pressure 137/81 116/78 O2 Sat by Pulse 96 99 Oximetry - Reevaluation(s) Reevaluation #1: 09/21/23 01:17 Records reviewed Reevaluation #2: 09/21/23 01:17 Patient symptoms improved Reevaluation #3: 09/21/23 01:17 Patient informed of results and questions answered Reevaluation #4: Was pt. sent in by a medical professional or institution (JULIANNE Donato, TELEPHONE ADVICE NURSE, urgent care, hospital, or jail...) When possible be specific @ -no Did you speak to anyone other than the patient for history (EMS, parent, family, police, friend...)? What history was obtained from this source @ -no Did you review nursing and triage notes (agree or disagree)? Why? @ -agree Are old charts reviewed (outside hosp., previous admission, EMS record, old EKG, old radiological studies, urgent care reports/EKG's, jail records)? Report findings @ -yes Differential Diagnosis (chest pain, altered mental status, abdominal pain women, abdominal pain men, vaginal bleeding, weakness, fever, dyspnea, syncope, headache, dizziness, GI bleed, back pain, seizure, CVA, palpatations, mental health, musculoskeletal)? @ -prior EKG interpreted by me (3pts min.). @ -yes X-rays interpreted by me (1pt min.). @ -yes negative for acute disease CT interpreted by me (1pt min.). @ -no U/S interpreted by me (1pt. min.). @ -no What testing was considered but not performed or refused? (CT, X-rays, U/S, labs)? Why? @ -none What meds were considered but not given or refused? Why? @ -none Did you discuss the management of the patient with other professionals (professionals i.e. JULIANNE Donato, TELEPHONE ADVICE NURSE, lab, RT, psych nurse, social service technician, director non profit, teacher, debt recovery officer, case management associate)? Give summary @ -no Was smoking cessation discussed for >3mins.? @ -no Was critical care preformed (if so, how long)? @ -no Were there social determinants of health that impacted care today? How? (Homelessness, low income, unemployed, alcoholism, drug addiction, transportati on, low edu. Level, literacy, decrease access to med. care, residential, rehab)? @ -none Was there de-escalation of care discussed even if they declined (Discuss DNR or withdrawal of care, Hospice)? DNR status @ -no What co-morbidities impacted this encounter? (DM, HTN, Smoking, COPD, CAD, Cancer, CVA, ARF, Chemo, Hep., AIDS, mental health diagnosis, sleep apnea, morbid obesity)? @ -none Was patient admitted / discharged? Hospital course, mention meds given and route, prescriptions, significant lab abnormalities, going to OR and other pertinent info. @ - Undiagnosed new problem with uncertain prognosis? @ -no Drug Therapy requiring intensive monitoring for toxicity (Heparin, Nitro, Insulin, Cardizem)? @ -no Were any procedures done? @ -no Diagnosis/symptom? @ - Acute, or Chronic, or Acute on Chronic? @ -Acute Uncomplicated (without systemic symptoms) or Complicated (systemic symptoms)? @ -Complicated Side effects of treatment? @ -no Exacerbation, Progression, or Severe Exacerbation? @ -exacerbation Poses a threat to life or bodily function? How? (Chest pain, [place], [place], pneumonia, PE, COPD, DKA, ARF, appy, cholecystitis, CVA, Diverticulitis, Homicidal, Suicidal, threat to staff... and all critical care pts) @ -yes Medical Decision Making - Lab Data Result diagrams: 09/21/23 01:08 09/21/23 01:08 Lab Results 09/21/23 09/21/23 09/21/23 Range/Units 01:08 01:08 01:08 WBC 12.4 H (3.8-10.6) k/uL RBC 3.78 L (3.80-5.40) m/uL Hgb 11.6 (11.4-16.0) gm/dL Hct 35.2 (34.0-46.0) % MCV 93.3 (80.0-100.0) fL MCH 30.6 (25.0-35.0) pg MCHC 32.8 (31.0-37.0) g/dL RDW 13.1 (11.5-15.5) % Plt Count 310 (150-450) k/uL MPV 8.5 Neutrophils % 70 % Lymphocytes % 19 % Monocytes % 6 % Eosinophils % 3 % Basophils % 1 % Neutrophils # 8.6 H (1.3-7.7) k/uL Lymphocytes # 2.3 (1.0-4.8) k/uL Monocytes # 0.8 (0-1.0) k/uL Eosinophils # 0.4 (0-0.7) k/uL Basophils # 0.1 (0-0.2) k/uL PT 10.1 (10.0-12.5) sec INR 0.9 (<1.2) APTT 24.5 (22.0-30.0) sec Sodium 138 (137-145) mmol/L Potassium 4.0 (3.5-5.1) mmol/L Chloride 104 (98-107) mmol/L Carbon Dioxide 25 (22-30) mmol/L Anion Gap 9 mmol/L BUN 28 H (7-17) mg/dL Creatinine 0.60 (0.52-1.04) mg/dL Est GFR (CKD-EPI)AfAm >90 (>60 ml/min/1.73 sqM) Est GFR (CKD-EPI)NonAf 87 (>60 ml/min/1.73 sqM) Glucose 113 H (74-99) mg/dL Plasma Lactic Acid Kb (0.7-2.0) mmol/L Calcium 9.5 (8.4-10.2) mg/dL Phosphorus 4.3 (2.5-4.5) mg/dL Magnesium 1.5 L (1.6-2.3) mg/dL Total Bilirubin 0.3 (0.2-1.3) mg/dL AST 23 (14-36) U/L ALT 15 (4-34) U/L Alkaline Phosphatase 111 (38-126) U/L Total Protein 6.1 L (6.3-8.2) g/dL Albumin 3.2 L (3.5-5.0) g/dL 09/21/23 Range/Units 01:08 WBC (3.8-10.6) k/uL RBC (3.80-5.40) m/uL Hgb (11.4-16.0) gm/dL Hct (34.0-46.0) % MCV (80.0-100.0) fL MCH (25.0-35.0) pg MCHC (31.0-37.0) g/dL RDW (11.5-15.5) % Plt Count (150-450) k/uL MPV Neutrophils % % Lymphocytes % % Monocytes % % Eosinophils % % Basophils % % Neutrophils # (1.3-7.7) k/uL Lymphocytes # (1.0-4.8) k/uL Monocytes # (0-1.0) k/uL Eosinophils # (0-0.7) k/uL Basophils # (0-0.2) k/uL PT (10.0-12.5) sec INR (<1.2) APTT (22.0-30.0) sec Sodium (137-145) mmol/L Potassium (3.5-5.1) mmol/L Chloride (98-107) mmol/L Carbon Dioxide (22-30) mmol/L Anion Gap mmol/L BUN (7-17) mg/dL Creatinine (0.52-1.04) mg/dL Est GFR (CKD-EPI)AfAm (>60 ml/min/1.73 sqM) Est GFR (CKD-EPI)NonAf (>60 ml/min/1.73 sqM) Glucose (74-99) mg/dL Plasma Lactic Acid Kb 1.6 (0.7-2.0) mmol/L Calcium (8.4-10.2) mg/dL Phosphorus (2.5-4.5) mg/dL Magnesium (1.6-2.3) mg/dL Total Bilirubin (0.2-1.3) mg/dL AST (14-36) U/L ALT (4-34) U/L Alkaline Phosphatase (38-126) U/L Total Protein (6.3-8.2) g/dL Albumin (3.5-5.0) g/dL - EKG Data -: EKG Interpreted by Me (EKG is sinus 67 LA 174 QRS 99 QTc 415) Disposition Clinical Impression: Left breast abscess, Postoperative abscess Disposition: ADMITTED IP TO THIS [facility] Condition: Good Is patient prescribed a controlled substance at d/c from ED?: No Referrals: Laureen Galan NPC [Family Provider] - 1-2 days Time of Disposition: 03:00
[2023-09-21 00:56] VITALS: RESP 18
[2023-09-21] MEDS: SODIUM CHLORIDE 0.9% 1,000 ML IV STA ×2 (01:41→02:47)
[2023-09-21 02:06] LABS: Basophils # (A) 0.1 k/uL (0-0.2); Basophils % (A) 1 %; Eosinophils # (A) 0.4 k/uL (0-0.7); Eosinophils % (A) 3 %; HCT 35.2 % (34.0-46.0); HGB 11.6 gm/dL (11.4-16.0); Lymphocytes # (A) 2.3 k/uL (1.0-4.8); Lymphocytes % (A) 19 %; MCH 30.6 pg (25.0-35.0); MCHC 32.8 g/dL (31.0-37.0); MCV 93.3 fL (80.0-100.0); Mean Platelet Volume 8.5; Monocytes # (A) 0.8 k/uL (0-1.0); Monocytes % (A) 6 %; Neutrophils # (A) 8.6 k/uL (1.3-7.7); Neutrophils % (A) 70 %; Platelet Count 310 k/uL (150-450); RBC 3.78 m/uL (3.80-5.40); RDW 13.1 % (11.5-15.5); WBC 12.4 k/uL (3.8-10.6)
[2023-09-21 02:11] LABS: ALT 15 U/L (4-34); AST 23 U/L (14-36); African American GFR (CKD) >90 (>60 ml/min/1.73 sqM); Albumin 3.2 g/dL (3.5-5.0); Alkaline Phosphatase 111 U/L (38-126); Anion Gap 9 mmol/L; Blood Urea Nitrogen 28 mg/dL (7-17); Calcium 9.5 mg/dL (8.4-10.2); Carbon Dioxide 25 mmol/L (22-30); Chloride 104 mmol/L (98-107); Glucose 113 mg/dL (74-99); Magnesium 1.5 mg/dL (1.6-2.3); Non-African American GFR(CKD) 87 (>60 ml/min/1.73 sqM); Phosphorus 4.3 mg/dL (2.5-4.5); Sodium 138 mmol/L (137-145); Total Bilirubin 0.3 mg/dL (0.2-1.3); Total Protein 6.1 g/dL (6.3-8.2)
[2023-09-21 02:25] LABS: INR 0.9 (<1.2); Partial Thromboplastin Time 24.5 sec (22.0-30.0); Prothrombin Time 10.1 sec (10.0-12.5)
[2023-09-21] MEDS: VANCOMYCIN 1,750 MG in SODIUM CHLORIDE 0.9% 500 ML 500 ML IVPB STA (02:46)
[2023-09-21] MEDS ORDERED: NALOXONE 0.4 MG/ML 1 ML VIAL IV PRN (03:00)
[2023-09-21] MEDS ORDERED: MORPHINE SULFATE 4 MG/ML SYRINGE IV PRN (03:00)
[2023-09-21] MEDS: SODIUM CHLORIDE 0.9% 1,000 ML IV SCH (03:09)
[2023-09-21 08:47] VITALS: BP 145/76; PULSE 64; TEMP 98.2
--- NOTE | 2023-09-21 11:31 | P.GSCN ---
History of Present Illness Consult date: 09/21/23 Reason for Consult: Postoperative irritation at drain site left side/rule out infection History of present illness: Maureen is an 82-year-old white female seen in consultation for Dr. Rivera regarding a questionable infection at her left mastectomy drain site. The patient is status post bilateral mastectomy for multifocal carcinoma of the left breast. 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 This revealed positive margins as well as a third site of cancer within the breast with a positive margin and 2 of 5 lymph nodes positive. Prior to the lumpectomy the patient had undergone neoadjuvant hormone therapy. Secondary to the findings the patient opted for a bilateral mastectomy which was performed on 09-02-2023. Postoperatively she has done well and was most recently seen by me in the office on 09-19-2023. At that time the NEELAM drainage was greater than 40 cc per drain and it was felt that the drain should stay for 1 more week. In the interim the patient's daughter noted that she had some in creasing irritation at the left drain site and was directed via a phone call to a nurse to take her mother to the emergency room. In the emergency department there was concern that she may have an infection and she was admitted. The patient herself denies any increased pain at the site. She is not having any increased redness at the site. She states she is feeling fine. He has not had any fever or chills. NEELAM drainage on the left side is less than 40 cc/day at this time. The output on the right side is approximately 60 cc/day. On her last postoperative visit in the office she was noted to have bilateral ankle swelling, she had been started on Lasix by her primary care doctor however the ankle remains swollen and in the office I ordered a Doppler study to rule out a DVT. There was a question of a DVT and she was started by her primary care doctor on outpatient Eliquis. Family history: 3 sisters: Breast cancer, the youngest in her 40s she had 7 sisters and 5 brothers Hormonal history: Menarche: 17 G8, P8, breast-fed: Yes, age at first ,: 25 Menopause: 47 Hormones: None Surgical history: Polio at the age of 10 on her legs Neck surgery Right elbow surgery Ear surgery Extra toe cut off left knee surgery Bilateral mastectomy with left axillary node sampling Medical history: Hypothyroid Gout Hypertension Social history: Nicotine: Negative Alcohol: Negative Drugs: Negative Review of Systems - Constitutional Denies fever, Denies weight loss - EENT Eyes: bilateral blurred vision Ears: bilateral: decreased hearing Ears, nose, mouth and throat: Denies dysphagia - Breasts bilateral: as per HPI - Cardiovascular Denies chest pain, Denies shortness of breath - Respiratory Denies cough, Denies 7 - Gastrointestinal Reports as per HPI - Genitourinary Genitourinary: Denies dysuria, Denies hematuria - Musculoskeletal Reports as per HPI - Integumentary Denies rash, Denies unusual bruising - Neurological Reports numbness - Psychiatric Reports anxiety - Endocrine Reports as per HPI - Hematologic/Lymphatic Hematologic/Lymphatic Comment(s): patient on Eliquis - Allergic/Immunologic Reports seasonal allergies Past Medical History Past Medical History: Cancer, Deep Vein Thrombosis (DVT), Hypertension, Myocardial Infarction ([place]), Thyroid Disorder Additional Past Medical History / Comment(s): polio, gout , breast cancer, abn ormal ekg showed old mi, deaf right ear., hx fall with fx right leg, hypothyroid. Last Myocardial Infarction Date:: unk History of Any Multi-Drug Resistant Organisms: None Reported Past Surgical History: Back Surgery, Breast Surgery, Joint Replacement, Orthopedic Surgery Additional Past Surgical History / Comment(s): r arm orif , neck surg , rt ear surgery as child, rt femur fx with linden to repair, total knee replacement, left breast surgery /lumpectomy 08/13/23. Past Anesthesia/Blood Transfusion Reactions: No Reported Reaction Past Psychological History: Anxiety Smoking Status: Never smoker Past Alcohol Use History: None Reported Past Drug Use History: None Reported - Past Family History Father Family Medical History: No Reported History Medications and Allergies Home Medications Medication Instructions Recorded Confirmed Type Levothyroxine Sodium [Synthroid] 175 mcg PO DAILY 06/09/17 09/21/23 History Lisinopril-Hctz 20-25 mg 1 tab PO DAILY 06/09/17 09/21/23 History [Zestoretic 20-25] allopurinoL [Zyloprim] 100 mg PO DAILY 06/09/17 09/21/23 History atenoloL [Tenormin] 50 mg PO DAILY 06/09/17 09/21/23 History Alendronate Sodium [Fosamax] 70 mg PO WEEKLY 07/25/23 09/21/23 History Calcium Carbonate [Calcium] 1,200 mg PO DAILY 08/29/23 09/19/23 History HYDROcodone/APAP 5-325MG [[place] 1 - 2 each PO Q6HR PRN #20 tab 09/03/23 09/21/23 Rx 5-325] Furosemide [Lasix] 20 mg PO DAILY 09/19/23 09/21/23 History Apixaban [Eliquis] 10 mg PO BID 09/21/23 09/21/23 History Allergies Allergy/AdvReac Type Severity Reaction Status Date / Time No Known Allergies Allergy Verified 09/19/23 08:55 Surgical - Exam Vital Signs Temp Pulse Resp BP Pulse Ox 97.7 F 65 18 137/81 96 09/21/23 00:26 09/21/23 00:26 09/21/23 00:26 09/21/23 00:26 09/21/23 00:26 - General no distress - Eyes normal ocular movement - Neck trachea midline - Respiratory normal respiratory effort, clear to auscultation - Cardiovascular Rhythm: regular Heart Sounds: normal: S1, S2 - Integumentary Incision bilateral clean and dry, no evidence of infection or seroma Drain site mild irritation bilateral no evidence of infection, output is serous with no evidence of purulence or infection on either site Left NEELAM drain site mild skin irritation no infection Results - Labs 09/21/23 01:08 09/21/23 01:08 Abnormal Lab Results - Last 24 Hours (Table) 09/21/23 09/21/23 Range/Units 01:08 01:08 WBC 12.4 H (3.8-10.6) k/uL RBC 3.78 L (3.80-5.40) m/uL Neutrophils # 8.6 H (1.3-7.7) k/uL BUN 28 H (7-17) mg/dL Glucose 113 H (74-99) mg/dL Magnesium 1.5 L (1.6-2.3) mg/dL Total Protein 6.1 L (6.3-8.2) g/dL Albumin 3.2 L (3.5-5.0) g/dL Diabetes panel 09/21/23 Range/Units 01:08 Sodium 138 (137-145) mmol/L Potassium 4.0 (3.5-5.1) mmol/L Chloride 104 (98-107) mmol/L Carbon Dioxide 25 (22-30) mmol/L BUN 28 H (7-17) mg/dL Creatinine 0.60 (0.52-1.04) mg/dL Glucose 113 H (74-99) mg/dL Calcium 9.5 (8.4-10.2) mg/dL AST 23 (14-36) U/L ALT 15 (4-34) U/L Alkaline Phosphatase 111 (38-126) U/L Total Protein 6.1 L (6.3-8.2) g/dL Albumin 3.2 L (3.5-5.0) g/dL Calcium panel 09/21/23 Range/Units 01:08 Calcium 9.5 (8.4-10.2) mg/dL Phosphorus 4.3 (2.5-4.5) mg/dL Albumin 3.2 L (3.5-5.0) g/dL Pituitary panel 09/21/23 Range/Units 01:08 Sodium 138 (137-145) mmol/L Potassium 4.0 (3.5-5.1) mmol/L Chloride 104 (98-107) mmol/L Carbon Dioxide 25 (22-30) mmol/L BUN 28 H (7-17) mg/dL Creatinine 0.60 (0.52-1.04) mg/dL Glucose 113 H (74-99) mg/dL Calcium 9.5 (8.4-10.2) mg/dL Adrenal panel 09/21/23 Range/Units 01:08 Sodium 138 (137-145) mmol/L Potassium 4.0 (3.5-5.1) mmol/L Chloride 104 (98-107) mmol/L Carbon Dioxide 25 (22-30) mmol/L BUN 28 H (7-17) mg/dL Creatinine 0.60 (0.52-1.04) mg/dL Glucose 113 H (74-99) mg/dL Calcium 9.5 (8.4-10.2) mg/dL Total Bilirubin 0.3 (0.2-1.3) mg/dL AST 23 (14-36) U/L ALT 15 (4-34) U/L Alkaline Phosphatase 111 (38-126) U/L Total Protein 6.1 L (6.3-8.2) g/dL Albumin 3.2 L (3.5-5.0) g/dL Assessment and Plan Assessment: Impression: 82-year-old white female status post bilateral mastectomy with left axillary node sampling/bilateral NEELAM drains in place mild skin irritation no evidence of cellulitis or infection NEELAM output minimal on the left, borderline on the right with approximately 60 cc/day on the right DVT patient on Eliquis Plan: DC NEELAM drain secondary to skin irritation, I have discussed with the patient and her daughter that she may develop a seroma which would require aspiration in the office at this time they wish the drains to be removed. I have discussed the case with Dr. Rivera I do not see any evidence of cellulitis or infection, from a surgical standpoint the patient can be discharged home. Patient may resume Eliquis Patient to follow-up next week CC: Laureen Galan
--- NOTE | 2023-09-21 14:28 | HP ---
HISTORY AND PHYSICAL This is a combined history and physical and discharge summary. CHIEF COMPLAINT: Irritation of the postoperative wounds and concerns of infection and abscess. HISTORY OF PRESENT ILLNESS: This is an 82-year-old woman, who recently had bilateral mastectomy with left axillary node sampling and bilateral NEELAM drains by Dr. Rodriguez, who was complaining of some irritation and redness in the surgical wound area. The patient was referred and the patient admitted overnight for further evaluation. One dose of vancomycin has been given. Dr. oRdriguez evaluated the patient today and recommended NEELAM drains to be removed and no antibiotics at this time. There is no history of fever or rigors. No history of headache, or loss of consciousness or seizures. PAST MEDICAL HISTORY: Recent bilateral mastectomy, DVT, hypertension, and multiple medical issues. Rest of the history and rest of the chart is also reviewed. HOME MEDICATIONS: Reviewed include lisinopril. Dose and rest of medications reviewed. FAMILY HISTORY: No history of heart disease or strokes in the family. SOCIAL HISTORY: No history of smoking or alcohol. REVIEW OF SYSTEMS: Fourteen-point review is negative except as mentioned earlier. PHYSICAL EXAMINATION: VITAL SIGNS: Pulse is 64, blood pressure 140/76, and respirations 18. HEENT: Conjunctivae normal. NECK: No JVD. CARDIOVASCULAR: S1 and S2. ABDOMEN: Soft. Nontender. NERVOUS SYSTEM: Nonfocal. SKIN: Postoperative site looks normal. No drainage. No abscess noted. LABORATORY DATA: WBC 12.4, rest of the labs are noted. ASSESSMENT: 1. Bilateral mastectomy postop with left axillary node sampling and bilateral NEELAM drains. 2. Minimal irritation at the site of NEELAM drains. 3. Elevated WBC, possibly postoperative. 4. Deep vein thrombosis. 5. Hypertension. 6. History of myocardial infarction. 7. Multiple complex medical issues. RECOMMENDATIONS AND DISCUSSION: This 82-year-old woman presented with multiple complex medical issues. At this time, I recommend to continue current management and treatment as mentioned earlier. Dr. Shena Garcia has discussed the case in detail with me and she has removed the NEELAM drain and there are no signs of infection currently. Recommended close outpatient followup. On exam, vital signs are currently stable. There are no focal deficits. Please continue the home medications and see the medication sheet for list of medications. Follow up with Dr. Laureen Galan, primary care physician and follow up with Dr. Rodriguez as recommended. MMODL / IJN: [id number] /
[2023-09-21] MEDS ORDERED: VANCOMYCIN 1,750 MG in SODIUM CHLORIDE 0.9% 500 ML 500 ML IVPB SCH (19:00)
== END 2023-09-21 12:30 | disposition home or self-care (01) ==
LOC: EC 00:25 → 5NMEDONC 03:01
PROVIDERS: ADMIT Hospitalist; ATTEND Hospitalist
DX: T81.49XA Infection following a procedure, other surgical site, initial encounter (principal); N61.1 Abscess of the breast and nipple; D72.829 Elevated white blood cell count, unspecified; I10 Essential (primary) hypertension; E03.9 Hypothyroidism, unspecified; F41.9 Anxiety disorder, unspecified; I25.2 Old myocardial infarction; Z85.3 Personal history of malignant neoplasm of breast; Z86.718 Personal history of other venous thrombosis and embolism; Z90.13 Acquired absence of bilateral breasts and nipples; Z80.3 Family history of malignant neoplasm of breast; Z79.890 Hormone replacement therapy; Z79.899 Other long term (current) drug therapy; Z79.83 Long term (current) use of bisphosphonates; Z79.01 Long term (current) use of anticoagulants
CPT/HCPCS: 96366; 96365; 96367; 99285; 36415; 93005; 80053; 83605; 83735; 84100; 85025; 85610; 85730; 87040; 87070; 87205; 87077; 87186; G0378; J3370; J0696

== ENCOUNTER → 2023-09-26 | Outpatient (CLI) | payer MEDICARE ==
--- NOTE | 2023-09-26 16:15 | P.PN ---
Progress Note - Text Progress Note Date: 09/26/23 Maureen is an 82-year-old white female status post bilateral mastectomy on 09-02-2023. Pathology revealed bilateral ALH/LCIS. No further invasive cancer was identified. Patient is doing well postoperatively. On her last visit she did have greater than 40 cc per 24-hour on each side from her NEELAM drains. The patient's daughter states the patient has been having increased fatigue and some cramping in her hands, she has followed with her primary care doctor for this. She continues to have > 40 cc from the right drain, and marginal close to 40 cc from the left side. The patient was noted to have bilateral ankle swelling. She was started on Lasix with resolution of the swelling in the right ankle but not on the left side. An ultrasound revealed a DT on the left. The patient presented to the hospital on 09-21-23 with concerns regarding the left NEELAM drain. She was admitted with possible infection, which was felt to be (-) and the drains were removed. Examination: Lungs: Clear Heart: Regular rate and rhythm Incision: Clean and dry bilateral no evidence of any infection or seroma, small seroma right side Left ankle swelling Plan: Patient has been seen by medical oncology plan is for radiation secondary to positive left axillary lymph node Patient is presently on letrozole And is presently on Eliquis Aspiration seroma right chest wall CC: Laureen Galan
[2023-09-26 16:41] VITALS: BP 115/55; PULSE 114; RESP 16; TEMP 98.3
== END ==
LOC: WWCWWP 15:26
PROVIDERS: ATTEND Surgery
DX: Z85.3 Personal history of malignant neoplasm of breast (principal); Z90.13 Acquired absence of bilateral breasts and nipples

== ENCOUNTER → 2023-10-04 | Outpatient (CLI) | payer MEDICARE ==
--- NOTE | 2023-10-04 15:29 | P.CON ---
Consult Note - . Consult date: 10/04/23 Assessment/Plan:: 10-04-23 Maureen is an 82-year-old white female status post bilateral mastectomy on 09-02-2023. Pathology revealed bilateral ALH/LCIS. No further invasive cancer was identified. Patient is doing well postoperatively. The patient was noted to have bilateral ankle swelling on a post op visit, She was started on Lasix with resolution of the swelling in the right ankle but not on the left side. An ultrasound revealed a DT on the left. She was started on Eloquis. She presented to the ER with a concern about the left NEELAM drain, and both drains were removed on 09-22-23. The patient had her drains removed and post removal developed a seroma on the right side which was aspirated on her last visit for 210 CC of fluid. Examination: Lungs: Clear Heart: Regular rate and rhythm Incision: Clean and dry bilateral no evidence of any infection or seroma, small seroma right side Left ankle swelling Plan: Patient has been seen by medical oncology plan is for radiation secondary to positive left axillary lymph node Patient is presently on letrozole And is presently on Eliquis follow up here in 4 months CC: Laureen Galan Additional CC's: Laureen Galan
[2023-10-04 15:34] VITALS: BP 138/65; PULSE 65; RESP 15; TEMP 98.3
== END ==
LOC: WWCWWP 14:55
PROVIDERS: ATTEND Surgery
DX: D05.02 Lobular carcinoma in situ of left breast (principal); D05.01 Lobular carcinoma in situ of right breast; M25.472 Effusion, left ankle; M25.471 Effusion, right ankle; Z90.13 Acquired absence of bilateral breasts and nipples; Z87.891 Personal history of nicotine dependence

== ENCOUNTER → 2024-03-27 | Outpatient (CLI) | payer MEDICARE ==
[2024-03-27 14:55] VITALS: BP 125/59; PULSE 69; RESP 17; TEMP 99.4
--- NOTE | 2024-03-27 15:35 | P.PN ---
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 The patient underwent on 12-04-22 a bilateral mammogram. This revealed a 2 cm irregular high-density mass in the left breast and a 1 cm irregular adjacent or contiguous mass in the inferior posterior breast. There was a poorly defined 1.5 cm mass in the middle third of the outer left breast in the 2 to 3:00 axis. No lesions of concern were recorded in the right breast. She then underwent bilateral breast ultrasounds. In the right breast there was a questionable mass at the 9:00 region on ultrasound which was indeterminant and in the left breast a 2.4 cm irregular solid mass at 4:00 was identified and a 1.2 cm irregular mass at 1:00 was identified. At least 2 suspicious lymph nodes in the left axilla were identified. She subsequently underwent ultrasound-guided core biopsy of the 1:00 to 4:00 site in the left breast. The 1:00 site revealed invasive lobular grade 2 carcinoma. The 4:00 site revealed invasive low-grade ductal carcinoma grade 1 with DCIS. The patient refused MRI issue said that she had metal in her ear. A right breast ultrasound core biopsy of the area of concern was performed and this was benign. A PET scan was performed on at [facility], this revealed 1. FDG avid left breast mass and axillary lymph node suspicious for metastases 1.5 cm right breast nodule without significant metabolism Minimally enlarged uterus without significant metabolism Recommend pelvic ultrasound scan No additional significant findings The patient was seen by radiation oncology on 8222 this note was reviewed the patient is considering neoadjuvant endocrine therapy she was not felt to be a good candidate for chemotherapy which seemed to be reasonable given her performance status and medical history Radiation oncologist discussed the role for adjuvant radiotherapy depending on her final pathology She underwent a left axillary biopsy and right breast biopsy on 8223: Right breast was benign Left breast axilla this fibrous tissue involved by invasive ductal carcinoma with scant lymphoid tissue present The patient can feel a lump in her left breast for about three weeks. She is not complaining of any pain in her breast. She did have a right breast lump removed in the remote past which was benign. She is not complaining of any trauma or infection in the breast. She had not had any mammograms prior to this evaluation for approximately 9 years. Her case was presented at tumor board and 8123 Recommendation was for PET scan: This was done did not show evidence of metastatic disease Ultrasound of left supraclavicular area no lesions of concern identified Breast MRI declined by patient Left axillary biopsy positive for involved node Right breast biopsy by ultrasound negative Genetic testing is sent She was seen today by Dat Morgan was recommended she undergo neoadjuvant hor clarence therapy. The patient and her daughter understand this and are in agreement with this. 03-22-23 note medical oncology 02-07-23 reviewed She is at the present time taking hormone therapy via Dr. Morgan. She is tolerating this without difficulty. The tumors have decreased in size on the therapy. The plan is for her to be on this for approximately 4-5 months. 07-15-23 note medical oncology 06-28-23 reviewed Left breast was performed on 06-20-2023 1 ;00 Position: Poorly defined hypoechoic area estimated to measure smaller compared to prior ultrasound now measures 2.1 x 0.9 x 0.8 was 2.3 x 1.2 x 0.8; prior biopsy invasive lobular cancer 4 o'clock position solid bilobed mass containing a microclip previously 2.8 x 2.5 x 2 now measures 2.5 x 1.3 x 1.6; prior biopsy invasive ductal cancer Within the axilla there is a 1.2 x 1.1 x 0.7 thickened lymph node previously measured 1.4 x 1.4 x 0.7 Testing: Result variant of uncertain significance The patient is having a stress test performed tomorrow. 03-27-24 She underwent ultrasound-guided core biopsy of the 1:00 to 4:00 site in the left breast 2022. The 1:00 site revealed invasive lobular grade 2 carcinoma. The 4:00 site revealed invasive low-grade ductal carcinoma grade 1 with DCIS. Patient underwent david-adjuvant hormone therapy and then proceded to surgery of the breast on 08-13-23. Patient underwent a left breast lumpectomy and SNB on 08-13-23, Her pathology revealed (+) margin of IDC and a second invasive lobular cancer. 2 of 5 nodes (+) for mets. She then decided to have a bilateral mastectomy which was done on 09-02-23. This pathology did not reveal any additional invasive cancer in either breast. Post op she did develope DVT and is on eloquis completed radiation on 12-13-23 to the left chest wall presently on anastrazole note Dr. Francisco Morgan 12-23-23 She has noted some swelling on the left chest wall which may be consistent with a seroma. She denies any recent trauma to the left chest wall. The patient remains on Eliquis after DVT developed. She is going to follow-up to see if she can stop this with Laureen Galan. Caffeine: occasional nicotine: none chocolate: weekly BCP: none hormones: none Family History: 3 sisters: breast cancer; youngest in her 40's; (she had 7 sisters and 5 brothers) Hormonal History: menarche: 17 breast fed: yes, age at first : 25 menopause: 47 hormones: none Surgical History: polio 8 on her legs neck surgery right elbow ear extra toe cut off Medical History: hypothyroid gout HTN Social History: nicotine: none Call: Negative Drugs: Negative - Constitutional Constitutional: Denies chills, Denies fever - EENT Eyes: bilateral blurred vision Ears: bilateral: decreased hearing Ears, nose, mouth and throat: Denies headache, Denies sore throat - Breasts Breasts: bilateral: as per HPI - Cardiovascular Cardiovascular: Denies chest pain, Denies shortness of breath - Respiratory Respiratory: Denies cough - Gastrointestinal Gastrointestinal: Denies abdominal pain, Denies diarrhea, Denies nausea, Denies vomiting - Genitourinary (Female) Genitourinary: Denies dysuria, Denies hematuria - Menstruation Menstruation: Reports postmenopausal - Musculoskeletal Musculoskeletal: Reports as per HPI - Integumentary Integumentary: Denies pruritus, Denies rash - Neurological Comment: uses a walker left leg fracture Neurological: Reports numbness - Psychiatric Psychiatric: Reports anxiety, Denies depression - Endocrine Endocrine: Reports as per HPI - Hematologic/Lymphatic Comment: none - Allergic/Immunologic Allergic/Immunologic: Reports seasonal allergies Past Medical History Past Medical History: Hypertension, Thyroid Disorder Additional Past Medical History / Comment(s): polio gout History of Any Multi-Drug Resistant Organisms: None Reported Past Surgical History: Back Surgery, Joint Replacement, Orthopedic Surgery Additional Past Surgical History / Comment(s): r arm neck surg Past Anesthesia/Blood Transfusion Reactions: No Reported Reaction Past Psychological History: Anxiety Past Alcohol Use History: None Reported Past Drug Use History: None Reported - Past Family History Father Family Medical History: No Reported History Medications and Allergies Home Medications Medication Instructions Recorded Confirmed Type Levothyroxine Sodium [Synthroid] 175 mcg PO DAILY 06/09/17 12/19/22 History Lisinopril-Hctz 20-25 mg 1 tab PO DAILY 06/09/17 12/19/22 History [Zestoretic 20-25] allopurinoL [Zyloprim] 100 mg PO DAILY 06/09/17 12/19/22 History atenoloL [Tenormin] 50 mg PO DAILY 06/09/17 12/19/22 History Allergies Allergy/AdvReac Type Severity Reaction Status Date / Time No Known Allergies Allergy Verified 12/19/22 13:57 Objective - Vital Signs Vital signs: Vital Signs Temp 99.4 F 03/27/24 14:50 Pulse 69 03/27/24 14:50 Resp 17 03/27/24 14:50 BP 125/59 03/27/24 14:50 Pulse Ox 94 L 03/27/24 14:50 FiO2 Intake & Output 03/26/24 03/27/24 03/27/24 18:59 06:59 18:59 Weight 98.43 kg - Constitutional General appearance: Present: cooperative - EENT Eyes: Present: EOMI ENT: Present: hearing grossly normal - Neck Neck: Present: normal ROM - Respiratory Respiratory: bilateral: CTA - Cardiovascular Heart sounds: normal: S1, S2 - Integumentary Integumentary: Present: normal turgor - Musculoskeletal Musculoskeletal Comment(s): in a wheel chair - Psychiatric Psychiatric: Present: A&O x's 3, appropriate affect, intact judgment & insight - Additional findings Additional findings: Chest wall examination Inspection: Bilateral incisions clean and dry Right chest wall no evidence of any nodularity of concern Left chest wall probable seroma no nodularity of concern Right axilla: No adenopathy of concern Left axilla: No adenopathy of concern Assessment and Plan Assessment: IMPRESSION: Patient status post bilateral mastectomy for multifocal carcinoma left breast Patient recently developed swelling of the left chest wall consistent with seroma Patient had a DVT post surgical and has been on Eliquis. She denies any recent trauma to the chest wall. Plan: Attempted aspiration probable seroma left chest wall Continue follow-up with medical oncology Discussion with Laureen Galan regarding stopping Eliquis Following informed consent the area of concern in the left breast was prepped using alcohol. An 18-gauge needle on a 20 cc syringe was used to aspirate fluid from the site. 85 cc of serous serosanguineous fluid was aspirated. There was resolution of the seroma.
== END ==
LOC: WWCWWP 14:31
PROVIDERS: ATTEND Surgery
DX: C50.412 Malignant neoplasm of upper-outer quadrant of left female breast (principal); N63.25 Unspecified lump in the left breast, overlapping quadrants; R22.2 Localized swelling, mass and lump, trunk; Z80.3 Family history of malignant neoplasm of breast; Z90.13 Acquired absence of bilateral breasts and nipples; Z79.01 Long term (current) use of anticoagulants; Z87.891 Personal history of nicotine dependence

== ENCOUNTER → 2024-05-21 | Outpatient (CLI) | payer MEDICARE ==
[2024-05-21 12:35] VITALS: BP 145/72; PULSE 62; RESP 17; TEMP 97.9
--- NOTE | 2024-05-21 12:51 | P.PN ---
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 The patient underwent on 12-04-22 a bilateral mammogram. This revealed a 2 cm irregular high-density mass in the left breast and a 1 cm irregular adjacent or contiguous mass in the inferior posterior breast. There was a poorly defined 1.5 cm mass in the middle third of the outer left breast in the 2 to 3:00 axis. No lesions of concern were recorded in the right breast. She then underwent bilateral breast ultrasounds. In the right breast there was a questionable mass at the 9:00 region on ultrasound which was indeterminant and in the left breast a 2.4 cm irregular solid mass at 4:00 was identified and a 1.2 cm irregular mass at 1:00 was identified. At least 2 suspicious lymph nodes in the left axilla were identified. She subsequently underwent ultrasound-guided core biopsy of the 1:00 to 4:00 site in the left breast. The 1:00 site revealed invasive lobular grade 2 carcinoma. The 4:00 site revealed invasive low-grade ductal carcinoma grade 1 with DCIS. The patient refused MRI issue said that she had metal in her ear. A right breast ultrasound core biopsy of the area of concern was performed and this was benign. A PET scan was performed on at [facility], this revealed 1. FDG avid left breast mass and axillary lymph node suspicious for metastases 1.5 cm right breast nodule without significant metabolism Minimally enlarged uterus without significant metabolism Recommend pelvic ultrasound scan No additional significant findings The patient was seen by radiation oncology on 8222 this note was reviewed the patient is considering neoadjuvant endocrine therapy she was not felt to be a good candidate for chemotherapy which seemed to be reasonable given her performance status and medical history Radiation oncologist discussed the role for adjuvant radiotherapy depending on her final pathology She underwent a left axillary biopsy and right breast biopsy on 8222: Right breast was benign Left breast axilla this fibrous tissue involved by invasive ductal carcinoma with scant lymphoid tissue present The patient can feel a lump in her left breast for about three weeks. She is not complaining of any pain in her breast. She did have a right breast lump removed in the remote past which was benign. She is not complaining of any trauma or infection in the breast. She had not had any mammograms prior to this evaluation for approximately 9 years. Her case was presented at tumor board and 8122 Recommendation was for PET scan: This was done did not show evidence of metastatic disease Ultrasound of left supraclavicular area no lesions of concern identified Breast MRI declined by patient Left axillary biopsy positive for involved node Right breast biopsy by ultrasound negative Genetic testing is sent She was seen today by Dat Morgan was recommended she undergo neoadjuvant hormone therapy. The patient and her daughter understand this and are in agreement with this. 03-22-23 note medical oncology 02-07-23 reviewed She is at the present time taking hormone therapy via Dr. Morgan. She is tolerating this without difficulty. The tumors have decreased in size on the therapy. The plan is for her to be on this for approximately 4-5 months. 07-15-23 note medical oncology 06-28-23 reviewed Left breast was performed on 06-20-2023 1 ;00 Position: Poorly defined hypoechoic area estimated to measure smaller compared to prior ultrasound now measures 2.1 x 0.9 x 0.8 was 2.3 x 1.2 x 0.8; prior biopsy invasive lobular cancer 4 o'clock position solid bilobed mass containing a microclip previously 2.8 x 2.5 x 2 now measures 2.5 x 1.3 x 1.6; prior biopsy invasive ductal cancer Within the axilla there is a 1.2 x 1.1 x 0.7 thickened lymph node previously measured 1.4 x 1.4 x 0.7 Testing: Result variant of uncertain significance The patient is having a stress test performed tomorrow. 03-27-24 She underwent ultrasound-guided core biopsy of the 1:00 to 4:00 site in the left breast 2022. The 1:00 site revealed invasive lobular grade 2 carcinoma. The 4:00 site revealed invasive low-grade ductal carcinoma grade 1 with DCIS. Patient underwent david-adjuvant hormone therapy and then proceded to surgery of the breast on 08-13-23. Patient underwent a left breast lumpectomy and SNB on 08-13-23, Her pathology revealed (+) margin of IDC and a second invasive lobular cancer. 2 of 5 nodes (+) for mets. She then decided to have a bilateral mastectomy which was done on 09-02-23. This pathology did not reveal any additional invasive cancer in either breast. Post op she did develope DVT and is on eloquis completed radiation on 12-13-23 to the left chest wall presently on anastrazole note Dr. Francisco Morgan 12-23-23 She has noted some swelling on the left chest wall which may be consistent with a seroma. She denies any recent trauma to the left chest wall. The patient remains on Eliquis after DVT developed. She is going to follow-up to see if she can stop this with Laureen Galan. 05-21-24 She underwent ultrasound-guided core biopsy of the 1:00 to 4:00 site in the left breast 2022. The 1:00 site revealed invasive lobular grade 2 carcinoma. The 4:00 site revealed invasive low-grade ductal carcinoma grade 1 with DCIS. Patient underwent david-adjuvant hormone therapy and then proceded to surgery of the breast on 08-13-23. Patient underwent a left breast lumpectomy and SNB on 08-13-23, Her pathology revealed (+) margin of IDC and a second invasive lobular cancer. 2 of 5 nodes (+) for mets. She then decided to have a bilateral mastectomy which was done on 09-02-23. This pathology did not reveal any additional invasive cancer in either breast. Post op she did develope DVT and was on eloquis completed radiation on 12-13-23 to the left chest wall presently on anastrazole She has noted some swelling on the left chest wall which may be consistent with a seroma. She denies any recent trauma to the left chest wall. This was aspirated for 85 cc of serous fluid on her visit of 03-27-2024. No other lumps masses or nodules on the chest wall. The patient was on Eliquis after DVT developed but this has been stopped in march. Caffeine: occasional nicotine: none chocolate: weekly BCP: none hormones: none Family History: 3 sisters: breast cancer; youngest in her 40's; (she had 7 sisters and 5 brothers) Hormonal History: menarche: 17 breast fed: yes, age at first : 25 menopause: 47 hormones: none Surgical History: polio 10 on her legs neck surgery right elbow ear extra toe cut off Medical History: hypothyroid gout HTN Social History: nicotine: none Call: Negative Drugs: Negative - Constitutional Constitutional: Denies chills, Denies fever - EENT Eyes: bilateral blurred vision Ears: bilateral: decreased hearing Ears, nose, mouth and throat: Denies headache, Denies sore throat - Breasts Breasts: bilateral: as per HPI - Cardiovascular Cardiovascular: Denies chest pain, Denies shortness of breath - Respiratory Respiratory: Denies cough - Gastrointestinal Gastrointestinal: Denies abdominal pain, Denies diarrhea, Denies nausea, Denies vomiting - Genitourinary (Female) Genitourinary: Denies dysuria, Denies hematuria - Menstruation Menstruation: Reports postmenopausal - Musculoskeletal Musculoskeletal: Reports as per HPI - Integumentary Integumentary: Denies pruritus, Denies rash - Neurological Comment: uses a walker left leg fracture Neurological: Reports numbness - Psychiatric Psychiatric: Reports anxiety, Denies depression - Endocrine Endocrine: Reports as per HPI - Hematologic/Lymphatic Comment: none - Allergic/Immunologic Allergic/Immunologic: Reports seasonal allergies Past Medical History Past Medical History: Hypertension, Thyroid Disorder Additional Past Medical History / Comment(s): polio gout History of Any Multi-Drug Resistant Organisms: None Reported Past Surgical History: Back Surgery, Joint Replacement, Orthopedic Surgery Additional Past Surgical History / Comment(s): r arm neck surg Past Anesthesia/Blood Transfusion Reactions: No Reported Reaction Past Psychological History: Anxiety Past Alcohol Use History: None Reported Past Drug Use History: None Reported - Past Family History Father Family Medical History: No Reported History Medications and Allergies Home Medications Medication Instructions Recorded Confirmed Type Levothyroxine Sodium [Synthroid] 175 mcg PO DAILY 06/09/17 12/19/22 History Lisinopril-Hctz 20-25 mg 1 tab PO DAILY 06/09/17 12/19/22 History [Zestoretic 20-25] allopurinoL [Zyloprim] 100 mg PO DAILY 06/09/17 12/19/22 History atenoloL [Tenormin] 50 mg PO DAILY 06/09/17 12/19/22 History Allergies Allergy/AdvReac Type Severity Reaction Status Date / Time No Known Allergies Allergy Verified 12/19/22 13:57 Objective - Vital Signs Vital signs: Vital Signs Temp 97.9 F 05/21/24 12:33 Pulse 62 05/21/24 12:33 Resp 17 05/21/24 12:33 BP 145/72 05/21/24 12:33 Pulse Ox 97 05/21/24 12:33 FiO2 Intake & Output 05/20/24 05/21/24 05/21/24 18:59 06:59 18:59 Weight 98.43 kg - Constitutional General appearance: Present: cooperative - EENT Eyes: Present: EOMI ENT: Present: hearing grossly normal - Neck Neck: Present: normal ROM - Respiratory Respiratory: bilateral: CTA - Cardiovascular Rhythm: regular Heart sounds: normal: S1, S2 - Integumentary Integumentary: Present: normal turgor - Psychiatric Psychiatric: Present: A&O x's 3, appropriate affect, intact judgment & insight - Additional findings Additional findings: Chest wall examination Inspection: Bilateral incisions clean and dry Right chest wall no evidence of any nodularity of concern Left chest wall probable seroma no nodularity of concern Right axilla: No adenopathy of concern Left axilla: No adenopathy of concern Assessment and Plan Assessment: IMPRESSION: Patient status post bilateral mastectomy for multifocal carcinoma left breast Patient recently developed swelling of the left chest wall consistent with seroma Patient had a DVT post surgical and had been on Eliquis, this was stopped. She denies any recent trauma to the chest wall. Plan: Attempt aspiration probable seroma left chest wall Continue follow-up with medical oncology stopped eloquis follow up in three months follow up sooner any concerns Following informed consent the area of concern in the left breast was prepped using alcohol. An 18-gauge needle on a 20 cc syringe was used to aspirate fluid from the site. 75 cc of serous serosanguineous fluid was aspirated. There was resolution of the seroma. Additional CC's: Laureen Galan
== END ==
LOC: WWCWWP 11:58
PROVIDERS: ATTEND Surgery
DX: Z08 Encounter for follow-up examination after completed treatment for malignant neoplasm (principal); N64.89 Other specified disorders of breast; N63.25 Unspecified lump in the left breast, overlapping quadrants; Z85.3 Personal history of malignant neoplasm of breast; Z80.3 Family history of malignant neoplasm of breast; Z90.13 Acquired absence of bilateral breasts and nipples; Z86.718 Personal history of other venous thrombosis and embolism; Z79.01 Long term (current) use of anticoagulants; Z87.891 Personal history of nicotine dependence

== ENCOUNTER 2024-09-29 21:52 | Emergency (ER) | payer MEDICARE ==
[2024-09-29 22:11] VITALS: TEMP 98.2
--- NOTE | 2024-09-29 22:40 | ED ---
General Adult HPI - General Chief complaint: Abdominal Pain Stated complaint: L Side/Back Pain Time Seen by Provider: 09/29/24 22:20 Source: patient, family Mode of arrival: wheelchair Limitations: no limitations - History of Present Illness Initial comments: This is an 83-year-old female present emergency department for complaint of left-sided back/flank pain. Patient states that she had right-sided flank pain about 2 weeks ago however this subsided. States that yesterday evening she began to experience midline back pain with no radiation to the right back/flank. Patient states that pain is intermittent and exacerbated with flexion and extension of the spine and with movement. States pain moderately wraps into her left hip. She denies dysuria, hematuria glucosteroid frequency or urgency, loss of bladder bowel continence or saddle anesthesias. Denies previous surgeries of the lumbar spine. Patient states that when her initial symptoms began she had a CT image that was unremarkable for kidney stones or kidney infection however was started on antibiotics with concern for UTI despite urinary symptoms. States that she took a Motrin today. No other acute complaints at this time. - Related Data Home Medications Medication Instructions Recorded Confirmed Levothyroxine Sodium [Synthroid] 175 mcg PO DAILY 06/09/17 05/21/24 Lisinopril-Hctz 20-25 mg 1 tab PO DAILY 06/09/17 05/21/24 [Zestoretic -] allopurinoL [Zyloprim] 100 mg PO DAILY 06/09/17 05/21/24 atenoloL [Tenormin] 50 mg PO DAILY 06/09/17 05/21/24 Alendronate Sodium [Fosamax] 70 mg PO TU 07/25/23 05/21/24 Furosemide [Lasix] 20 mg PO DAILY 09/19/23 05/21/24 Anastrozole [Arimidex] 1 mg PO DAILY 09/21/23 05/21/24 Apixaban [Eliquis] See Taper PO DIRECTED 09/21/23 05/21/24 Calcium Carbonate/Vitamin D3 1 tab PO BID 09/21/23 05/21/24 [Calcium 600 mg-D3 20 mcg (800 unit)] Allergies Allergy/AdvReac Type Severity Reaction Status Date / Time No Known Allergies Allergy Verified 09/29/24 22:06 Review of Systems ROS Statement: Those systems with pertinent positive or pertinent negative responses have been documented in the HPI. ROS Other: All systems not noted in ROS Statement are negative. Past Medical History Past Medical History: Cancer, Deep Vein Thrombosis (DVT), Hypertension, Myocardial Infarction (CO), Thyroid Disorder Additional Past Medical History / Comment(s): polio, gout , breast cancer, abnormal ekg showed old mi, deaf right ear., hx fall with fx right leg, hypothyroid. Last Myocardial Infarction Date:: unk History of Any Multi-Drug Resistant Organisms: None Reported Past Surgical History: Back Surgery, Breast Surgery, Joint Replacement, Orthopedic Surgery Additional Past Surgical History / Comment(s): r arm orif , neck surg , rt ear surgery as child, rt femur fx with linden to repair, total knee replacement, left breast surgery /lumpectomy 08/13/23. bilateral mstectomy Past Anesthesia/Blood Transfusion Reactions: No Reported Reaction Past Psychological History: Anxiety Smoking Status: Never smoker Past Alcohol Use History: None Reported Past Drug Use History: None Reported - Past Family History Father Family Medical History: No Reported History General Exam Limitations: no limitations General appearance: alert, in no apparent distress Neck exam: Present: normal inspection. Absent: tenderness, meningismus, lymphadenopathy Respiratory exam: Present: normal lung sounds bilaterally. Absent: respiratory distress, wheezes, rales, rhonchi, stridor Cardiovascular Exam: Present: regular rate, normal rhythm, normal heart sounds. Absent: systolic murmur, diastolic murmur, rubs, gallop, clicks GI/Abdominal exam: Present: soft, normal bowel sounds. Absent: distended, tenderness, guarding, rebound, rigid Back exam: Present: full ROM, tenderness, CVA tenderness (L) Neurological exam: Present: alert, oriented X3, CN II-XII intact Course Vital Signs 09/29/24 09/29/24 09/30/24 22:06 22:35 00:18 Temperature 98.2 F 98.2 F Pulse Rate 65 62 62 Respiratory 16 18 17 Rate Blood Pressure 166/74 167/70 162/75 O2 Sat by Pulse 96 94 L 96 Oximetry Medical Decision Making - Medical Decision Making Was pt. sent in by a medical professional or institution (, PA, SURGICAL APPLIANCES SALESPERSON, urgent care, hospital, or fci...) When possible be specific @ -No Did you speak to anyone other than the patient for history (EMS, parent, family, police, friend...)? What history was obtained from this source @ -No Did you review nursing and triage notes (agree or disagree)? Why? @ -I reviewed and agree with nursing and triage notes Were old charts reviewed (outside hosp., previous admission, EMS record, old EKG, old radiological studies, urgent care reports/EKG's, fci records)? Report findings @ -No old charts were reviewed Differential Diagnosis (chest pain, altered mental status, abdominal pain women, abdominal pain men, vaginal bleeding, weakness, fever, dyspnea, syncope, headache, dizziness, GI bleed, back pain, seizure, CVA, palpatations, mental health, musculoskeletal)? @ -Differential Back Pain: Strain, zoster, cauda equina syndrome, epidural abscess, vertebral osteomyeli tis, discitis, fracture, subluxation, disc herniation, DJD, spinal stenosis, dissection, AAA, pancreatitis, peptic ulcer disease, pyelonephritis, kidney stone, this is not meant to be an all-inclusive list. EKG interpreted by me (3pts min.). @ -None X-rays interpreted by me (1pt min.). @ -None done CT interpreted by me (1pt min.). @ -CT of the lumbar spine without contrast no evidence of fracture with mild to moderate degeneration changes with stenosis of the L5-S1 CT of the abdomen pelvis no evidence for obstructive uropathy or renal calculus, appendix is normal U/S interpreted by me (1pt. min.). @ -None done What testing was considered but not performed or refused? (CT, X-rays, U/S, labs)? Why? @ -None What meds were considered but not given or refused? Why? @ -None Did you discuss the management of the patient with other professionals (professionals i.e. , PA, SURGICAL APPLIANCES SALESPERSON, lab, RT, psych nurse, social worker health services, repair welder, teacher, returning officer, caseworker)? Give summary @ -No Was smoking cessation discussed for >3mins.? @ -No Was critical care preformed (if so, how long)? @ -No Were there social determinants of health that impacted care today? How? (Homelessness, low income, unemployed, alcoholism, drug addiction, transportation, low edu. Level, literacy, decrease access to med. care, nursing home, rehab)? @ -No Was there de-escalation of care discussed even if they declined (Discuss DNR or withdrawal of care, Hospice)? DNR status @ -No What co-morbidities impacted this encounter? (DM, HTN, Smoking, COPD, CAD, Cancer, CVA, ARF, Chemo, Hep., AIDS, mental health diagnosis, sleep apnea, morbid obesity)? @ -None Was patient admitted / discharged? Hospital course, mention meds given and route, prescriptions, significant lab abnormalities, going to OR and other per tinent info. @ -Discharge. 83-year-old female presenting with left flank/back pain. Overall patient is well-appearing. There are no skin changes on physical exam. There are no red flag findings concerning for cauda equina, negative straight leg test bilaterally. Pain is mildly reproducible however is exacerbated with range of motion. She was offered pain medication however was declined. CT imaging the lumbar spine and of the abdomen pelvis no evidence of acute process. As pain is reproducible with movement and imaging has been unremarkable believe that symptoms likely secondary to muscle strain and musculoskeletal in nature rather than intra-abdominal or skeletal. Patient's urinalysis no signs of infection. Patient is provided with lidocaine patch. Recommend close follow-up outpatient with primary care provider. Patient stable for discharge. Case discussed with Dr. Linder Undiagnosed new problem with uncertain prognosis? @ -No Drug Therapy requiring intensive monitoring for toxicity (Heparin, Nitro, Insulin, Cardizem)? @ -No Were any procedures done? @ -No Diagnosis/symptom? @ -Back pain Acute, or Chronic, or Acute on Chronic? @ -Acute Uncomplicated (without systemic symptoms) or Complicated (systemic symptoms)? @ -Uncomplicated Side effects of treatment? @ -No Exacerbation, Progression, or Severe Exacerbation? @ -No Poses a threat to life or bodily function? How? (Chest pain, [place], CO, pneumonia, PE, COPD, DKA, ARF, appy, cholecystitis, CVA, Diverticulitis, Homicidal, Suicidal, threat to staff... and all critical care pts) @ -No - Lab Data Lab Results 09/29/24 Range/Units 23:16 Urine Color Light Yellow Urine Appearance Clear (Clear) Urine pH 6.5 (5.0-8.0) Ur Specific [place] 1.021 (1.001-1.035) Urine Protein Negative (Negative) Urine Glucose (UA) Negative (Negative) Urine Ketones Negative (Negative) Urine Blood Negative (Negative) Urine Nitrite Negative (Negative) Urine Bilirubin Negative (Negative) Urine Urobilinogen <2.0 (<2.0) mg/dL Ur Leukocyte Esterase Moderate H (Negative) Urine RBC 3 (0-5) /hpf Urine WBC 19 H (0-5) /hpf Ur Squamous Epith Cells <1 (0-4) /hpf Disposition Clinical Impression: Back pain Disposition: HOME SELF-CARE Condition: Good Additional Instructions: Please return to the Emergency Department if symptoms worsen or any other concerns. Is patient prescribed a controlled substance at d/c from ED?: No Referrals: Sandor Pruitt MD [Primary Care Provider] - 1-2 days Time of Disposition: 00:07
[2024-09-29 22:43] VITALS: PULSE 62
--- NOTE | 2024-09-29 23:30 | CT ---
EXAMINATION TYPE: CT abdomen pelvis wo con, CT lumbar spine wo con DATE OF EXAM: 09/29/2024 11:18 PM COMPARISON: 01/24/2023 CLINICAL INDICATION: Female, 83 years old with history of r flank pain, back pain; Pt presents with r ight flank pain that started last week, and last night it moved to the center of her back. Today moe n is now into the left flank. TECHNIQUE: Axial CT abdomen pelvis wo con, CT lumbar spine wo con;Sagittal and coronal reformats wer e created on a separate workstation. Additional axial imaging of the lumbar spine with sagittal coronal reformats were performed. Contrast used: mL of , (none if empty) Oral contrast used: without Oral Contrast (none if empty) CT DLP: 2092.4 (accession [id number]), 0 (accession [id number]) mGycm, Automated exposure control for dos e reduction was used. FINDINGS: LOWER EDUARDO: The heart is mildly enlarged for size. ABDOMEN LIVER: Unremarkable GALLBLADDER AND BILE DUCTS: Layering increased densities within the lumen consistent with gallstones are present. PANCREAS: Unremarkable. SPLEEN: Unremarkable. ADRENAL GLANDS: Unremarkable. KIDNEYS AND URETERS: No evidence of hydronephrosis or renal calculus. The ureters are unremarkable. Simple appearing right renal cortical and left renal cortical cysts. PELVIS BLADDER: No evidence for wall thickening or mass given limitations of exam. REPRODUCTIVE: Unremarkable. ABDOMEN & PELVIS STOMACH AND BOWEL: Small hiatal hernia, duodenum is unremarkable No evidence of bowel obstruction. Th e appendix is normal. Scattered colonic diverticula. PERITONEUM/RETROPERITONEUM: No evidence of pneumoperitoneum or free fluid. VASCULATURE: No evidence of aortic aneurysm. MUSCULOSKELETAL: No acute osseous abnormalities. Moderate disc degeneration changes are present throu ghout the thoracolumbar spine. Fixation hardware in the right hip appears intact. Multilevel degenera tion changes of the spine with joint space or mass effect formation and facet joint arthropathy. Cyst ic lesion in the S1 with thin sclerosis periphery measuring 16 mm. Spinal alignment is within in sati sfactory alignment. Scattered neural foraminal stenosis worse at L5-S1 with moderate stenosis.. There is diffuse osseous demineralization. LYMPH NODES: No gross evidence for lymphadenopathy. SOFT TISSUE/ABDOMINAL WALL: Fat-containing umbilical hernia. IMPRESSION: Abdomen and pelvis: 1. No evidence for obstructive uropathy or renal calculus. The appendix is normal 2. Mild cardiomegaly. 3. Cholelithiasis. 4. Small hiatal hernia. 5. Colonic diverticulosis. 6. Bilateral probable renal cysts. No follow-up recommended. Spine: 1. No evidence for spinal fracture. Mild to moderate degeneration changes. 2. Diffuse osseous demineralization. 3. Neural foraminal stenosis worse on the right with moderate right L5-S1 neural foraminal stenosis. [facility], , 09/29/2024 11:27 PM
[2024-09-29 23:37] LABS: Appearance,Urine Clear (Clear); Bilirubin,Urine Negative (Negative); Blood,Urine Negative (Negative); Color,Urine Light Yellow; Glucose,Urine (UA) Negative (Negative); Ketones,Urine Negative (Negative); Leukocyte Esterase,Urine Moderate (Negative); Nitrite,Urine Negative (Negative); PH, Urine 6.5 (5.0-8.0); Protein,Urine Negative (Negative); RBC,Urine 3 /hpf (0-5); Specific Gravity,Urine 1.021 (1.001-1.035); Squamous Epithelial Cell,Urine <1 /hpf (0-4); Urobilinogen,Urine <2.0 mg/dL (<2.0); WBC,Urine 19 /hpf (0-5)
[2024-09-30] MEDS: LIDOCAINE 4% PATCH TOPICAL ONE (00:16)
[2024-09-30 00:21] VITALS: BP 162/75; RESP 17
== END 2024-09-30 00:34 | disposition home or self-care (01) ==
LOC: SUPCPDRO 21:52 → EC 21:52
DX: M54.9 Dorsalgia, unspecified (principal)
CPT/HCPCS: 72131; 74176; 81001; 99284

== ENCOUNTER → 2025-01-28 | Outpatient (CLI) | payer MEDICARE ==
[2025-01-28 14:03] VITALS: BP 160/75; PULSE 58; RESP 17; TEMP 97.9
--- NOTE | 2025-01-28 14:22 | P.PN ---
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 The patient underwent on 12-04-22 a bilateral mammogram. This revealed a 2 cm irregular high-density mass in the left breast and a 1 cm irregular adjacent or contiguous mass in the inferior posterior breast. There was a poorly defined 1.5 cm mass in the middle third of the outer left breast in the 2 to 3:00 axis. No lesions of concern were recorded in the right breast. She then underwent bilateral breast ultrasounds. In the right breast there was a questionable mass at the 9:00 region on ultrasound which was indeterminant and in the left breast a 2.4 cm irregular solid mass at 4:00 was identified and a 1.2 cm irregular mass at 1:00 was identified. At least 2 suspicious lymph nodes in the left axilla were identified. She subsequently underwent ultrasound-guided core biopsy of the 1:00 to 4:00 site in the left breast. The 1:00 site revealed invasive lobular grade 2 carcinoma. The 4:00 site revealed invasive low-grade ductal carcinoma grade 1 with DCIS. The patient refused MRI issue said that she had metal in her ear. A right breast ultrasound core biopsy of the area of concern was performed and this was benign. A PET scan was performed on at [facility], this revealed 1. FDG avid left breast mass and axillary lymph node suspicious for metastases 1.5 cm right breast nodule without significant metabolism Minimally enlarged uterus without significant metabolism Recommend pelvic ultrasound scan No additional significant findings The patient was seen by radiation oncology on 8222 this note was reviewed the patient is considering neoadjuvant endocrine therapy she was not felt to be a good candidate for chemotherapy which seemed to be reasonable given her performance status and medical history Radiation oncologist discussed the role for adjuvant radiotherapy depending on her final pathology She underwent a left axillary biopsy and right breast biopsy on 8222: Right breast was benign Left breast axilla this fibrous tissue involved by invasive ductal carcinoma with scant lymphoid tissue present The patient can feel a lump in her left breast for about three weeks. She is not complaining of any pain in her breast. She did have a right breast lump removed in the remote past which was benign. She is not complaining of any trauma or infection in the breast. She had not had any mammograms prior to this evaluation for approximately 9 years. Her case was presented at tumor board and 8122 Recommendation was for PET scan: This was done did not show evidence of metastatic disease Ultrasound of left supraclavicular area no lesions of concern identified Breast MRI declined by patient Left axillary biopsy positive for involved node Right breast biopsy by ultrasound negative Genetic testing is sent She was seen today by Dat Morgan was recommended she undergo neoadjuvant hormone therapy. The patient and her daughter understand this and are in agreement with this. 03-22-23 note medical oncology 02-07-23 reviewed She is at the present time taking hormone therapy via Dr. Morgan. She is tolerating this without difficulty. The tumors have decreased in size on the therapy. The plan is for her to be on this for approximately 4-5 months. 07-15-23 note medical oncology 06-28-23 reviewed Left breast was performed on 06-20-2023 1 ;00 Position: Poorly defined hypoechoic area estimated to measure smaller compared to prior ultrasound now measures 2.1 x 0.9 x 0.8 was 2.3 x 1.2 x 0.8; prior biopsy invasive lobular cancer 4 o'clock position solid bilobed mass containing a microclip previously 2.8 x 2.5 x 2 now measures 2.5 x 1.3 x 1.6; prior biopsy invasive ductal cancer Within the axilla there is a 1.2 x 1.1 x 0.7 thickened lymph node previously measured 1.4 x 1.4 x 0.7 Testing: Result variant of uncertain significance The patient is having a stress test performed tomorrow. 03-27-24 She underwent ultrasound-guided core biopsy of the 1:00 to 4:00 site in the left breast 2022. The 1:00 site revealed invasive lobular grade 2 carcinoma. The :00 site revealed invasive low-grade ductal carcinoma grade 1 with DCIS. Patient underwent david-adjuvant hormone therapy and then proceded to surgery of the breast on 08-13-23. Patient underwent a left breast lumpectomy and SNB on 08-13-23, Her pathology revealed (+) margin of IDC and a second invasive lobular cancer. 2 of 5 nodes (+) for mets. She then decided to have a bilateral mastectomy which was done on 09-02-23. This pathology did not reveal any additional invasive cancer in either breast. Post op she did develope DVT and is on eloquis completed radiation on 12-13-23 to the left chest wall presently on anastrazole note Dr. Francisco Morgan 12-23-23 She has noted some swelling on the left chest wall which may be consistent with a seroma. She denies any recent trauma to the left chest wall. The patient remains on Eliquis after DVT developed. She is going to follow-up to see if she can stop this with Laureen Galan. 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 2 of 5 nodes (+) for mets. She then decided to have a bilateral mastectomy which was done on 09-02-23. This pathology did not reveal any additional invasive cancer in either breast. The patient is presently on anastrozole She completed radiation of the left chest wall on 12-13-2023 She developed a DVT and is on eloquis note Dr. Dat Morgan 01-07-25 reviewed; left chest wall fullness recommended ultrasound; DEXA scan in January 2025, continue anastrazole Patient was recommended to have an ultrasound of the left chest wall however she missed that appointment. Caffeine: occasional nicotine: none chocolate: weekly BCP: none hormones: none Family History: 3 sisters: breast cancer; youngest in her 40's; (she had 7 sisters and 5 brothers) Hormonal History: menarche: 17 breast fed: yes, age at first : 25 menopause: 47 hormones: none Surgical History: polio 8 on her legs neck surgery right elbow ear extra toe cut off Medical History: hypothyroid gout HTN Social History: nicotine: none Call: Negative Drugs: Negative - Constitutional Constitutional: Denies chills, Denies fever - EENT Eyes: bilateral blurred vision Ears: bilateral: decreased hearing Ears, nose, mouth and throat: Denies headache, Denies sore throat - Breasts Breasts: bilateral: as per HPI - Cardiovascular Cardiovascular: Denies chest pain, Denies shortness of breath - Respiratory Respiratory: Denies cough - Gastrointestinal Gastrointestinal: Denies abdominal pain, Denies diarrhea, Denies nausea, Denies vomiting - Genitourinary (Female) Genitourinary: Denies dysuria, Denies hematuria - Menstruation Menstruation: Reports postmenopausal - Musculoskeletal Musculoskeletal: Reports as per HPI - Integumentary Integumentary: Denies pruritus, Denies rash - Neurological Comment: uses a walker left leg fracture Neurological: Reports numbness - Psychiatric Psychiatric: Reports anxiety, Denies depression - Endocrine Endocrine: Reports as per HPI - Hematologic/Lymphatic Comment: none - Allergic/Immunologic Allergic/Immunologic: Reports seasonal allergies Past Medical History Past Medical History: Hypertension, Thyroid Disorder Additional Past Medical History / Comment(s): polio gout History of Any Multi-Drug Resistant Organisms: None Reported Past Surgical History: Back Surgery, Joint Replacement, Orthopedic Surgery Additional Past Surgical History / Comment(s): r arm neck surg Past Anesthesia/Blood Transfusion Reactions: No Reported Reaction Past Psychological History: Anxiety Past Alcohol Use History: None Reported Past Drug Use History: None Reported - Past Family History Father Family Medical History: No Reported History Medications and Allergies Home Medications Medication Instructions Recorded Confirmed Type Levothyroxine Sodium [Synthroid] 175 mcg PO DAILY 06/09/17 12/19/22 History Lisinopril-Hctz 20-25 mg 1 tab PO DAILY 06/09/17 12/19/22 History [Zestoretic 20-25] allopurinoL [Zyloprim] 100 mg PO DAILY 06/09/17 12/19/22 History atenoloL [Tenormin] 50 mg PO DAILY 06/09/17 12/19/22 History Allergies Allergy/AdvReac Type Severity Reaction Status Date / Time No Known Allergies Allergy Verified 12/19/22 13:57 Objective - Vital Signs Vital signs: Vital Signs Temp 97.9 F 01/28/25 14:00 Pulse 58 L 01/28/25 14:00 Resp 17 01/28/25 14:00 BP 160/75 01/28/25 14:00 Pulse Ox 98 01/28/25 14:00 FiO2 Intake & Output 01/27/25 01/28/25 01/28/25 18:59 06:59 18:59 Weight 100.698 kg - Constitutional General appearance: Present: cooperative - EENT Eyes: Present: EOMI ENT: Present: hearing grossly normal - Neck Neck: Present: normal ROM - Respiratory Respiratory: bilateral: CTA - Cardiovascular Rhythm: regular Heart sounds: normal: S1, S2 - Integumentary Integumentary: Present: normal turgor - Psychiatric Psychiatric: Present: A&O x's 3, appropriate affect, intact judgment & insight - Additional findings Additional findings: Chest wall examination Inspection: Bilateral incisions clean and dry Right chest wall no evidence of any nodularity of concern Left chest wall: Probable seroma left chest wall, no nodularity of concern Right axilla: No adenopathy of concern Left axilla: No adenopathy of concern Assessment and Plan Assessment: IMPRESSION: Patient status post bilateral mastectomy for multifocal carcinoma left breast Probable seroma left chest wall Continue Fosamax/calcium/anastrozole Plan: Continue to follow with medical oncology Attempt at aspiration probable seroma left chest wall Ultrasound next week to follow-up after this is done Following informed consent the area of concern in the left chest wall was prepped using alcohol. An 18-gauge needle with a 20 cc syringe was used to aspirate 55 cc of dark-colored fluid. This is sent for cytology. There was near complete resolution of the seroma. CC: Laureen Galan
== END ==
LOC: WWCWWP 13:48
PROVIDERS: ATTEND Surgery
DX: C50.912 Malignant neoplasm of unspecified site of left female breast (principal); Z90.13 Acquired absence of bilateral breasts and nipples; Z87.891 Personal history of nicotine dependence
CPT/HCPCS: 87070; 87075; 87205